=== PATIENT | female | born 1940 | race Caucasian/White ===

== ENCOUNTER 2017-05-03 13:36 | Outpatient (CLI) | payer MEDICARE ==
[2017-05-03 15:50] LABS: INR-International Normal Ratio 2.2; Prothrombin Time 25.5 SEC (12.0-14.7)
== END 2017-05-03 13:37 | disposition home or self-care (01) ==
LOC: MADLAB 13:36
PROVIDERS: ATTEND Family Medicine
DX: Z51.81 Encounter for therapeutic drug level monitoring (principal); Z79.01 Long term (current) use of anticoagulants
CPT/HCPCS: 36415; 85610

== ENCOUNTER 2017-05-31 14:27 | Outpatient (CLI) | payer MEDICARE ==
[2017-05-31 14:34] LABS: INR-International Normal Ratio 2.6
== END 2017-05-31 14:28 | disposition home or self-care (01) ==
LOC: MADLAB 14:27
PROVIDERS: ATTEND Family Medicine
DX: Z51.81 Encounter for therapeutic drug level monitoring (principal); I48.91 Unspecified atrial fibrillation; Z79.01 Long term (current) use of anticoagulants
CPT/HCPCS: 36415; 85610

== ENCOUNTER 2017-12-24 10:09 | Outpatient (CLI) | payer MEDICARE ==
[2017-12-24 10:43] LABS: INR-International Normal Ratio 1.8; Prothrombin Time 20.7 SEC (12.0-14.7)
== END 2017-12-24 10:10 | disposition home or self-care (01) ==
LOC: MADLAB 10:09
PROVIDERS: ATTEND Family Medicine
DX: I48.91 Unspecified atrial fibrillation (principal)
CPT/HCPCS: 36415; 85610

== ENCOUNTER 2018-01-14 11:17 | Outpatient (CLI) | payer MEDICARE ==
[2018-01-14 11:53] LABS: INR-International Normal Ratio 1.4; Prothrombin Time 17.6 SEC (12.0-14.7)
== END 2018-01-14 11:18 | disposition home or self-care (01) ==
LOC: MADLAB 11:17
PROVIDERS: ATTEND Family Medicine
DX: Z51.81 Encounter for therapeutic drug level monitoring (principal); I48.91 Unspecified atrial fibrillation; Z79.01 Long term (current) use of anticoagulants
CPT/HCPCS: 36415; 85610

== ENCOUNTER 2018-01-24 11:13 | Outpatient (CLI) | payer MEDICARE ==
[2018-01-24 11:43] LABS: Prothrombin Time 22.8 SEC (12.0-14.7)
== END 2018-01-24 11:14 | disposition home or self-care (01) ==
LOC: MADLAB 11:13
PROVIDERS: ATTEND Family Medicine
DX: I48.91 Unspecified atrial fibrillation (principal); Z79.01 Long term (current) use of anticoagulants
CPT/HCPCS: 36415; 85610

== ENCOUNTER 2018-02-07 10:35 | Outpatient (CLI) | payer MEDICARE ==
[2018-02-07 11:13] LABS: INR-International Normal Ratio 2.1; Prothrombin Time 23.9 SEC (12.0-14.7)
== END 2018-02-07 10:36 | disposition home or self-care (01) ==
LOC: MADLAB 10:35
PROVIDERS: ATTEND Family Medicine
DX: I48.91 Unspecified atrial fibrillation (principal)
CPT/HCPCS: 36415; 85610

== ENCOUNTER 2018-05-18 20:03 | Emergency (ER) | payer MEDICARE ==
--- NOTE | 2018-05-18 21:21 | RAD ---
CERVICAL SPINE AP LATERAL STANDARD 05/18/18 HISTORY: Neck pain after being lifted. COMPARISON: None . FINDINGS: Open mouth odontoid view is limited. Lateral radiograph only goes to the level of C5. No acute fracture or malalignment is appreciated. Moderate narrowing of the disc spaces from C3-C6 wi th uncinate process hypertrophy as well as bridging anterior osteophytes. Visualized mandible is intact. Moderate vascular calcifications both carotid bulbs. IMPRESSION: No acute abnormality. POS: [facility]
== END 2018-05-18 21:40 | disposition home or self-care (01) ==
LOC: MADERS 20:03
DX: S16.1XXA Strain of muscle, fascia and tendon at neck level, initial encounter (principal); I48.91 Unspecified atrial fibrillation; E10.9 Type 1 diabetes mellitus without complications; E78.5 Hyperlipidemia, unspecified; I10 Essential (primary) hypertension; Z79.899 Other long term (current) drug therapy; Z79.01 Long term (current) use of anticoagulants; W18.09XA Striking against other object with subsequent fall, initial encounter
CPT/HCPCS: 72040

== ENCOUNTER 2018-05-29 10:28 | Outpatient (CLI) | payer MEDICARE ==
[2018-05-29 10:56] LABS: INR-International Normal Ratio 1.2; Prothrombin Time 15.2 SEC (12.0-14.7)
== END 2018-05-29 10:29 | disposition home or self-care (01) ==
LOC: MADLAB 10:28
PROVIDERS: ATTEND Internal Medicine Cardiovascular Disease
DX: I48.0 Paroxysmal atrial fibrillation (principal)
CPT/HCPCS: 36415; 85610

== ENCOUNTER 2019-01-28 14:06 | Outpatient (CLI) | payer MEDICARE ==
[2019-01-28 14:34] LABS: INR-International Normal Ratio 1.1; Prothrombin Time 14.3 SEC (12.0-14.7)
== END 2019-01-28 14:07 | disposition home or self-care (01) ==
LOC: MADLAB 14:06
PROVIDERS: ATTEND Internal Medicine Cardiovascular Disease
DX: I48.0 Paroxysmal atrial fibrillation (principal)
CPT/HCPCS: 36415; 85610

== ENCOUNTER 2019-02-13 08:42 | Outpatient (CLI) | payer MEDICARE ==
[2019-02-13 09:26] LABS: INR-International Normal Ratio 1.8; Prothrombin Time 20.8 SEC (12.0-14.7)
== END 2019-02-13 08:43 | disposition home or self-care (01) ==
LOC: MADLAB 08:42
PROVIDERS: ATTEND Family Medicine
DX: Z51.81 Encounter for therapeutic drug level monitoring (principal); I48.91 Unspecified atrial fibrillation; Z79.01 Long term (current) use of anticoagulants
CPT/HCPCS: 36415; 85610

== ENCOUNTER 2019-03-24 09:06 | Outpatient (CLI) | payer MEDICARE ==
[2019-03-24 09:38] LABS: INR-International Normal Ratio 1.9; Prothrombin Time 21.8 SEC (12.0-14.7)
== END 2019-03-24 09:07 | disposition home or self-care (01) ==
LOC: MADLAB 09:06
PROVIDERS: ATTEND Family Medicine
DX: I48.91 Unspecified atrial fibrillation (principal); Z79.01 Long term (current) use of anticoagulants
CPT/HCPCS: 36415; 85610

== ENCOUNTER 2019-04-14 14:13 | Outpatient (CLI) | payer MEDICARE ==
[2019-04-14 15:01] LABS: INR-International Normal Ratio 1.3; Prothrombin Time 16.3 SEC (12.0-14.7)
== END 2019-04-14 14:14 | disposition home or self-care (01) ==
LOC: MADLAB 14:13
PROVIDERS: ATTEND Family Medicine
DX: Z51.81 Encounter for therapeutic drug level monitoring (principal); I48.91 Unspecified atrial fibrillation; Z79.01 Long term (current) use of anticoagulants
CPT/HCPCS: 36415; 85610

== ENCOUNTER 2019-04-22 14:54 | Outpatient (CLI) | payer MEDICARE ==
[2019-04-22 15:19] LABS: INR-International Normal Ratio 1.8; Prothrombin Time 20.9 SEC (12.0-14.7)
== END 2019-04-22 14:55 | disposition home or self-care (01) ==
LOC: MADLABBHPM 14:54
PROVIDERS: ATTEND Family Medicine
DX: Z51.81 Encounter for therapeutic drug level monitoring (principal); I48.91 Unspecified atrial fibrillation; Z79.01 Long term (current) use of anticoagulants
CPT/HCPCS: 36415; 85610

== ENCOUNTER 2019-05-06 09:27 | Outpatient (CLI) | payer MEDICARE ==
[2019-05-06 09:49] LABS: INR-International Normal Ratio 1.3; Prothrombin Time 16.1 SEC (12.0-14.7)
== END 2019-05-06 09:28 | disposition home or self-care (01) ==
LOC: MADLAB 09:27
PROVIDERS: ATTEND Family Medicine
DX: Z51.81 Encounter for therapeutic drug level monitoring (principal); I48.91 Unspecified atrial fibrillation; Z79.01 Long term (current) use of anticoagulants
CPT/HCPCS: 36415; 85610

== ENCOUNTER 2019-05-13 12:32 | Outpatient (CLI) | payer MEDICARE ==
[2019-05-13 12:39] LABS: Prothrombin Time 22.4 SEC (12.0-14.7)
== END 2019-05-13 12:33 | disposition home or self-care (01) ==
LOC: MADLAB 12:32
PROVIDERS: ATTEND Family Medicine
DX: Z51.81 Encounter for therapeutic drug level monitoring (principal); I48.91 Unspecified atrial fibrillation; Z79.01 Long term (current) use of anticoagulants
CPT/HCPCS: 36415; 85610

== ENCOUNTER 2019-05-29 10:01 | Outpatient (CLI) | payer MEDICARE ==
[2019-05-29 10:22] LABS: INR-International Normal Ratio 2.2; Prothrombin Time 24.7 SEC (12.0-14.7)
== END 2019-05-29 10:02 | disposition home or self-care (01) ==
LOC: MADLAB 10:01
PROVIDERS: ATTEND Family Medicine
DX: Z51.81 Encounter for therapeutic drug level monitoring (principal); I48.91 Unspecified atrial fibrillation; Z79.01 Long term (current) use of anticoagulants
CPT/HCPCS: 36415; 85610

== ENCOUNTER 2019-06-23 14:22 | Outpatient (CLI) | payer MEDICARE ==
[2019-06-23 14:51] LABS: INR-International Normal Ratio 1.6
== END 2019-06-23 14:23 | disposition home or self-care (01) ==
LOC: MADLAB 14:22
PROVIDERS: ATTEND Family Medicine
DX: Z51.81 Encounter for therapeutic drug level monitoring (principal); I48.91 Unspecified atrial fibrillation; Z79.01 Long term (current) use of anticoagulants
CPT/HCPCS: 36415; 85610

== ENCOUNTER 2019-07-02 11:13 | Outpatient (CLI) | payer MEDICARE ==
[2019-07-02 13:51] LABS: INR-International Normal Ratio 1.4; Prothrombin Time 17.1 SEC (12.0-14.7)
== END 2019-07-02 11:14 | disposition home or self-care (01) ==
LOC: MADLAB 11:13
PROVIDERS: ATTEND Family Medicine
DX: Z51.81 Encounter for therapeutic drug level monitoring (principal); I48.91 Unspecified atrial fibrillation; Z79.01 Long term (current) use of anticoagulants
CPT/HCPCS: 36415; 85610

== ENCOUNTER 2019-08-14 14:20 | Outpatient (CLI) | payer MEDICARE ==
[2019-08-14 14:46] LABS: INR-International Normal Ratio 1.4; Prothrombin Time 17.2 sec (12.0-14.7)
== END 2019-08-14 14:21 | disposition home or self-care (01) ==
LOC: MADLAB 14:20
PROVIDERS: ATTEND Family Medicine
DX: Z51.81 Encounter for therapeutic drug level monitoring (principal); Z79.01 Long term (current) use of anticoagulants
CPT/HCPCS: 36415; 85610

== ENCOUNTER 2019-08-26 17:30 | Inpatient (IN) | payer MEDICARE, OTHER ==
[2019-08-26] MEDS: Simvastatin 20 MG TAB PO SCH (20:33)
[2019-08-26] MEDS: Gabapentin 100 MG CAP PO SCH (20:33)
[2019-08-26] MEDS: Furosemide 40 MG TAB PO SCH (20:33)
[2019-08-26] MEDS: Metoprolol Tartrate 25 MG TAB PO SCH (23:46)
[2019-08-27] MEDS: Metoprolol Tartrate 25 MG TAB PO SCH ×4 (05:35→23:53)
[2019-08-27 08:19] LABS: #Basophils 0.1 thou/uL (0.0-0.2); #Eosinphils 0.6 thou/uL (0.0-0.7); #Lymphocytes 0.5 thou/uL (1.20-3.40); #Monocytes 0.7 thou/uL (0.11-0.59); %Basophils 0.8 % (0.0-1.0); %Eosinophils 5.7 % (0.0-10.0); %Lymphocytes 4.7 % (21.0-51.0); %Monocytes 6.3 % (0.0-10.0); %Neutrophils 82.5 % (42.0-75.0); Mean Corpuscular HGB CONC 31.6 g/dL (32.0-36.0); Mean Corpuscular Hemoglobin 30.7 pg (27.0-31.0); Mean Corpuscular Volume 97.1 fL (78.0-98.0); Mean Platelet Volume 8.6 fL (7.4-10.4); Platelet Count 215 thou/uL (130-400); RBC Distribution Width 14.3 % (11.5-14.5); Red Blood Cell (RBC) Count 3.24 mill/uL (4.20-5.40); White Blood Cell (WBC) Count 10.9 thou/uL (4.8-10.8)
[2019-08-27 08:28] LABS: INR-International Normal Ratio 1.2; Prothrombin Time 14.9 sec (12.0-14.7)
[2019-08-27 08:38] LABS: ALT (SGPT) 37 U/L (8-55); AST (SGOT) 17 U/L (5-34); Albumin 3.3 g/dL (3.4-4.8); Alkaline Phosphatase 79 U/L (40-110); Anion Gap 15 mmol/L (10-20); BUN (Urea Nitrogen) 84 mg/dL (9.8-20.1); Bilirubin, Total 0.8 mg/dL (0.2-1.2); Calc. Creatinine Clearance 82 mL/min (70-130); Calcium 9.9 mg/dL (7.8-10.44); Carbon Dioxide 24 mmol/L (23-31); Chloride 106 mmol/L (98-107); Estimated GFR-MDRD 42; Globulin 2.4 g/dL (2.4-3.5); Glucose 124 mg/dL (83-110); Potassium 3.8 mmol/L (3.5-5.1); Protein, Total 5.7 g/dL (6.0-8.3); Sodium 141 mmol/L (136-145)
[2019-08-27] MEDS: Allopurinol 100 MG TAB PO SCH (09:05)
[2019-08-27] MEDS: Aspirin 81 mg Enteric Coated Tablet PO SCH (09:05)
[2019-08-27] MEDS: Gabapentin 100 MG CAP PO SCH ×3 (09:05→20:09)
[2019-08-27] MEDS: Furosemide 40 MG TAB PO SCH ×2 (09:05→20:09)
[2019-08-27] MEDS: Nystatin Powder 15 GM BOT TOP PRN (11:06)
[2019-08-27] MEDS: HYDROcodone/Acetaminophen 5/325 mg Tablet PO PRN (11:42)
[2019-08-27] MEDS ORDERED: Ondansetron ODT 4 MG TAB PO PRN (14:58)
[2019-08-27] MEDS: Warfarin Sodium 5 MG TAB PO SCH (17:17)
[2019-08-27] MEDS: Simvastatin 20 MG TAB PO SCH (20:09)
[2019-08-27] MEDS: HYDROcodone/Acetaminophen 10/325 mg Tablet PO PRN (20:11)
[2019-08-27] MEDS ORDERED: Famotidine 20 MG TAB PO SCH (21:00)
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
[2019-08-28] MEDS: Metoprolol Tartrate 25 MG TAB PO SCH ×4 (05:52→23:25)
[2019-08-28] MEDS: Furosemide 40 MG TAB PO SCH ×2 (08:28→21:11)
[2019-08-28] MEDS: Allopurinol 100 MG TAB PO SCH (08:28)
[2019-08-28] MEDS: Aspirin 81 mg Enteric Coated Tablet PO SCH (08:28)
[2019-08-28] MEDS: Gabapentin 100 MG CAP PO SCH ×3 (08:28→21:11)
[2019-08-28] MEDS: Nystatin Powder 15 GM BOT TOP PRN (08:28)
[2019-08-28 08:30] LABS: INR-International Normal Ratio 1.2; Prothrombin Time 15.4 sec (12.0-14.7)
[2019-08-28] MEDS: HYDROcodone/Acetaminophen 10/325 mg Tablet PO PRN ×4 (09:27→23:24)
[2019-08-28] MEDS: Warfarin Sodium 5 MG TAB PO SCH (16:55)
[2019-08-28] MEDS: Simvastatin 20 MG TAB PO SCH (21:11)
[2019-08-29] MEDS: HYDROcodone/Acetaminophen 5/325 mg Tablet PO PRN ×4 (03:58→15:56)
[2019-08-29] MEDS: Metoprolol Tartrate 25 MG TAB PO SCH ×4 (05:14→23:00)
[2019-08-29 05:26] LABS: #Basophils 0.1 thou/uL (0.0-0.2); #Eosinphils 0.7 thou/uL (0.0-0.7); #Lymphocytes 0.7 thou/uL (1.20-3.40); #Monocytes 0.6 thou/uL (0.11-0.59); #Neutrophils 6.6 thou/uL (1.40-6.50); %Basophils 1.1 % (0.0-1.0); %Lymphocytes 7.7 % (21.0-51.0); %Monocytes 6.7 % (0.0-10.0); %Neutrophils 76.5 % (42.0-75.0); Hemoglobin 10.2 g/dL (12.0-16.0); Mean Corpuscular HGB CONC 31.4 g/dL (32.0-36.0); Mean Corpuscular Hemoglobin 30.9 pg (27.0-31.0); Mean Corpuscular Volume 98.3 fL (78.0-98.0); Mean Platelet Volume 8.2 fL (7.4-10.4); Platelet Count 235 thou/uL (130-400); RBC Distribution Width 14.9 % (11.5-14.5); Red Blood Cell (RBC) Count 3.31 mill/uL (4.20-5.40); White Blood Cell (WBC) Count 8.7 thou/uL (4.8-10.8)
[2019-08-29 05:27] LABS: INR-International Normal Ratio 1.3
[2019-08-29 05:35] LABS: Anion Gap 14 mmol/L (10-20); BUN (Urea Nitrogen) 72 mg/dL (9.8-20.1); Calc. Creatinine Clearance 84 mL/min (70-130); Calcium 9.9 mg/dL (7.8-10.44); Carbon Dioxide 28 mmol/L (23-31); Chloride 106 mmol/L (98-107); Estimated GFR-MDRD 44; Glucose 116 mg/dL (83-110); Potassium 3.8 mmol/L (3.5-5.1); Sodium 144 mmol/L (136-145)
[2019-08-29] MEDS: Aspirin 81 mg Enteric Coated Tablet PO SCH (08:08)
[2019-08-29] MEDS: Allopurinol 100 MG TAB PO SCH (08:08)
[2019-08-29] MEDS: Gabapentin 100 MG CAP PO SCH ×3 (08:08→20:31)
[2019-08-29] MEDS: Furosemide 40 MG TAB PO SCH ×2 (08:08→20:31)
[2019-08-29] MEDS ORDERED: Warfarin Sodium 2.5 MG TAB PO SCH (17:00)
[2019-08-29] MEDS ORDERED: Warfarin Sodium 5 MG TAB PO SCH (17:00)
[2019-08-29] MEDS: Simvastatin 20 MG TAB PO SCH (20:31)
[2019-08-29] MEDS: HYDROcodone/Acetaminophen 10/325 mg Tablet PO PRN (22:07)
[2019-08-30] MEDS: Metoprolol Tartrate 25 MG TAB PO SCH ×4 (05:15→23:47)
[2019-08-30 05:42] LABS: INR-International Normal Ratio 1.4
[2019-08-30] MEDS: Allopurinol 100 MG TAB PO SCH (08:20)
[2019-08-30] MEDS: Gabapentin 100 MG CAP PO SCH ×3 (08:20→21:06)
[2019-08-30] MEDS: Furosemide 40 MG TAB PO SCH ×2 (08:20→21:06)
[2019-08-30] MEDS: Aspirin 81 mg Enteric Coated Tablet PO SCH (08:20)
[2019-08-30] MEDS: HYDROcodone/Acetaminophen 5/325 mg Tablet PO PRN (12:50)
[2019-08-30] MEDS ORDERED: Warfarin Sodium 5 MG TAB PO SCH ×2 (16:30→17:00)
[2019-08-30] MEDS: HYDROcodone/Acetaminophen 10/325 mg Tablet PO PRN (21:06)
[2019-08-30] MEDS: Simvastatin 20 MG TAB PO SCH (21:06)
[2019-08-31] MEDS: Metoprolol Tartrate 25 MG TAB PO SCH ×4 (05:44→23:09)
[2019-08-31 06:15] LABS: INR-International Normal Ratio 1.6; Prothrombin Time 18.9 sec (12.0-14.7)
[2019-08-31] MEDS: Aspirin 81 mg Enteric Coated Tablet PO SCH (08:58)
[2019-08-31] MEDS: Furosemide 40 MG TAB PO SCH ×2 (08:58→14:33)
[2019-08-31] MEDS: Allopurinol 100 MG TAB PO SCH (08:58)
[2019-08-31] MEDS: Gabapentin 100 MG CAP PO SCH ×3 (08:59→21:19)
[2019-08-31] MEDS: Warfarin Sodium 5 MG TAB PO SCH (17:38)
[2019-08-31] MEDS: HYDROcodone/Acetaminophen 5/325 mg Tablet PO PRN (17:38)
[2019-08-31] MEDS: HYDROcodone/Acetaminophen 10/325 mg Tablet PO PRN (21:18)
[2019-08-31] MEDS: Simvastatin 20 MG TAB PO SCH (21:19)
[2019-08-31] MEDS: Metolazone 5 MG TAB PO PRN (21:19)
--- NOTE | 2019-08-31 22:04 | RAD ---
CHEST 1 VIEW: DATE: 08/31/2019 COMPARISON: Radiograph dated 05/30/2018. FINDINGS: Heart size is enlarged. Moderate effusions. Pulmonary arteries are dilated. Moderate edema. Confluent opacity right upper lobe. IMPRESSION: Decompensated congestive heart failure. POS: HOME
[2019-08-31] MEDS ORDERED: Potassium Chloride 20 MEQ TAB PO SCH (22:30)
[2019-08-31] MEDS ORDERED: Furosemide 20 MG TAB PO SCH (22:30)
[2019-09-01 03:37] LABS: Bilirubin Negative (Negative); Blood, Urine Trace (Negative); Clarity Clear (Clear); Glucose, Urine (Dipstick) Negative (Negative); Leukocyte Large (Negative); Nitrite Positive (Negative); Protein, Urine (Dipstick) Negative (Neg-Trace); Urobilinogen 0.2 mg/dL (Less than 2)
[2019-09-01 03:47] LABS: RBC/HPF 0-3 HPF (0-3)
[2019-09-01 03:48] LABS: Bacteria/HPF 3+ HPF (None Seen); Squamous Epithelial 0-3 HPF (0-3); WBC/HPF Greater than 50 HPF (0-3)
[2019-09-01 03:50] LABS: Urine Culture Reflex Yes Yes
[2019-09-01 05:45] LABS: INR-International Normal Ratio 1.9; Prothrombin Time 22.1 sec (12.0-14.7)
[2019-09-01 05:54] LABS: Anion Gap 15 mmol/L (10-20); BUN (Urea Nitrogen) 44 mg/dL (9.8-20.1); Calc. Creatinine Clearance 101 mL/min (70-130); Calcium 9.6 mg/dL (7.8-10.44); Carbon Dioxide 32 mmol/L (23-31); Chloride 102 mmol/L (98-107); Estimated GFR-MDRD 56; Glucose 106 mg/dL (83-110); Potassium 3.6 mmol/L (3.5-5.1); Sodium 145 mmol/L (136-145)
[2019-09-01] MEDS: Furosemide 40 MG TAB PO SCH (06:02)
[2019-09-01] MEDS: Metoprolol Tartrate 25 MG TAB PO SCH ×3 (06:02→17:15)
[2019-09-01] MEDS ORDERED: Furosemide 20 MG TAB PO SCH ×4 (07:30→14:00)
[2019-09-01] MEDS ORDERED: Furosemide 40 MG TAB PO SCH ×2 (07:30→14:00)
[2019-09-01] MEDS ORDERED: Potassium Chloride 20 MEQ TAB PO SCH (08:00)
[2019-09-01] MEDS: Gabapentin 100 MG CAP PO SCH ×3 (08:17→21:21)
[2019-09-01] MEDS: Aspirin 81 mg Enteric Coated Tablet PO SCH (08:17)
[2019-09-01] MEDS: Allopurinol 100 MG TAB PO SCH (08:17)
[2019-09-01] MEDS: HYDROcodone/Acetaminophen 10/325 mg Tablet PO PRN ×2 (08:25→17:42)
[2019-09-01] MEDS: Potassium Chloride 20 MEQ TAB PO SCH (16:30)
[2019-09-01] MEDS: Warfarin Sodium 5 MG TAB PO SCH (16:31)
[2019-09-01] MEDS: Simvastatin 20 MG TAB PO SCH (21:21)
[2019-09-02] MEDS: HYDROcodone/Acetaminophen 10/325 mg Tablet PO PRN ×5 (00:09→21:02)
[2019-09-02] MEDS: Metoprolol Tartrate 25 MG TAB PO SCH ×4 (00:10→17:16)
[2019-09-02 05:56] LABS: Anion Gap 14 mmol/L (10-20); BUN (Urea Nitrogen) 45 mg/dL (9.8-20.1); Calc. Creatinine Clearance 86 mL/min (70-130); Calcium 9.4 mg/dL (7.8-10.44); Carbon Dioxide 36 mmol/L (23-31); Chloride 100 mmol/L (98-107); Estimated GFR-MDRD 49; Glucose 109 mg/dL (83-110); Potassium 3.8 mmol/L (3.5-5.1); Sodium 146 mmol/L (136-145)
[2019-09-02 06:21] LABS: INR-International Normal Ratio 2.2
[2019-09-02] MEDS ORDERED: Furosemide 80 MG TAB PO SCH (07:30)
[2019-09-02] MEDS: Potassium Chloride 20 MEQ TAB PO SCH ×2 (08:15→17:17)
[2019-09-02] MEDS: Gabapentin 100 MG CAP PO SCH ×3 (08:15→21:02)
[2019-09-02] MEDS: Allopurinol 100 MG TAB PO SCH (08:15)
[2019-09-02] MEDS: Aspirin 81 mg Enteric Coated Tablet PO SCH (08:15)
[2019-09-02] MEDS ORDERED: Sodium Chloride Irrig Solution 250 ML BOT ONE (10:13)
[2019-09-02] MEDS: Furosemide 80 MG TAB PO SCH (15:02)
[2019-09-02] MEDS: Warfarin Sodium 5 MG TAB PO SCH (17:17)
[2019-09-02] MEDS: Simvastatin 20 MG TAB PO SCH (21:02)
[2019-09-03] MEDS: Metoprolol Tartrate 25 MG TAB PO SCH ×5 (00:34→23:54)
[2019-09-03 05:58] LABS: INR-International Normal Ratio 2.4; Prothrombin Time 25.7 sec (12.0-14.7)
[2019-09-03] MEDS: Aspirin 81 mg Enteric Coated Tablet PO SCH (08:13)
[2019-09-03] MEDS: HYDROcodone/Acetaminophen 10/325 mg Tablet PO PRN ×2 (08:13→12:09)
[2019-09-03] MEDS: Potassium Chloride 20 MEQ TAB PO SCH ×2 (08:13→16:55)
[2019-09-03] MEDS: Furosemide 80 MG TAB PO SCH ×2 (08:13→13:52)
[2019-09-03] MEDS: Gabapentin 100 MG CAP PO SCH ×3 (08:14→20:19)
[2019-09-03] MEDS: Allopurinol 100 MG TAB PO SCH (08:14)
[2019-09-03] MEDS: Warfarin Sodium 5 MG TAB PO SCH (16:56)
[2019-09-03] MEDS: HYDROcodone/Acetaminophen 5/325 mg Tablet PO PRN ×2 (16:56→21:09)
[2019-09-03] MEDS: Simvastatin 20 MG TAB PO SCH (20:19)
[2019-09-04] MEDS: Metoprolol Tartrate 25 MG TAB PO SCH ×4 (05:09→23:27)
[2019-09-04] MEDS: HYDROcodone/Acetaminophen 5/325 mg Tablet PO PRN ×2 (05:10→10:20)
[2019-09-04 05:59] LABS: INR-International Normal Ratio 2.7; Prothrombin Time 28.7 sec (12.0-14.7)
[2019-09-04] MEDS: Potassium Chloride 20 MEQ TAB PO SCH ×2 (08:05→16:40)
[2019-09-04] MEDS: Aspirin 81 mg Enteric Coated Tablet PO SCH (08:05)
[2019-09-04] MEDS: Gabapentin 100 MG CAP PO SCH ×3 (08:05→20:10)
[2019-09-04] MEDS: Furosemide 80 MG TAB PO SCH ×2 (08:05→14:25)
[2019-09-04] MEDS: Allopurinol 100 MG TAB PO SCH (08:05)
[2019-09-04 09:34] LABS: #Basophils 0.1 thou/uL (0.0-0.2); #Eosinphils 0.4 thou/uL (0.0-0.7); #Lymphocytes 0.7 thou/uL (1.20-3.40); #Monocytes 0.4 thou/uL (0.11-0.59); #Neutrophils 6.1 thou/uL (1.40-6.50); %Basophils 0.9 % (0.0-1.0); %Eosinophils 5.2 % (0.0-10.0); %Lymphocytes 9.1 % (21.0-51.0); %Monocytes 5.5 % (0.0-10.0); %Neutrophils 79.3 % (42.0-75.0); Hemoglobin 10.7 g/dL (12.0-16.0); Mean Corpuscular HGB CONC 29.7 g/dL (32.0-36.0); Mean Corpuscular Hemoglobin 29.7 pg (27.0-31.0); Mean Platelet Volume 8.7 fL (7.4-10.4); Platelet Count 235 thou/uL (130-400); RBC Distribution Width 14.8 % (11.5-14.5); White Blood Cell (WBC) Count 7.6 thou/uL (4.8-10.8)
[2019-09-04 09:47] LABS: Anion Gap 16 mmol/L (10-20); BUN (Urea Nitrogen) 48 mg/dL (9.8-20.1); Calc. Creatinine Clearance 69 mL/min (70-130); Calcium 9.8 mg/dL (7.8-10.44); Carbon Dioxide 36 mmol/L (23-31); Chloride 95 mmol/L (98-107); Estimated GFR-MDRD 37; Glucose 172 mg/dL (83-110); Sodium 143 mmol/L (136-145)
[2019-09-04 16:18] LABS: Bilirubin Negative (Negative); Blood, Urine Trace (Negative); Glucose, Urine (Dipstick) Negative (Negative); Leukocyte Small (Negative); Nitrite Positive (Negative); Protein, Urine (Dipstick) Negative (Neg-Trace); Urobilinogen 0.2 mg/dL (Less than 2)
[2019-09-04 16:29] LABS: Clarity Hazy (Clear)
[2019-09-04 16:31] LABS: Bacteria/HPF 1+ HPF (None Seen); RBC/HPF 0-3 HPF (0-3); WBC/HPF 21-50 HPF (0-3)
[2019-09-04] MEDS: Warfarin Sodium 5 MG TAB PO SCH (16:40)
[2019-09-04] MEDS: HYDROcodone/Acetaminophen 10/325 mg Tablet PO PRN ×2 (19:39→23:25)
[2019-09-04] MEDS: Simvastatin 20 MG TAB PO SCH (20:10)
[2019-09-05] MEDS: HYDROcodone/Acetaminophen 10/325 mg Tablet PO PRN ×3 (06:21→20:10)
[2019-09-05] MEDS: Metoprolol Tartrate 25 MG TAB PO SCH ×4 (06:23→23:29)
[2019-09-05 07:40] LABS: Prothrombin Time 30.7 sec (12.0-14.7)
[2019-09-05] MEDS: Potassium Chloride 20 MEQ TAB PO SCH ×2 (07:40→17:09)
[2019-09-05] MEDS: Furosemide 80 MG TAB PO SCH ×2 (07:41→14:55)
[2019-09-05] MEDS: Allopurinol 100 MG TAB PO SCH (07:41)
[2019-09-05] MEDS: Aspirin 81 mg Enteric Coated Tablet PO SCH (07:41)
[2019-09-05] MEDS: Gabapentin 100 MG CAP PO SCH ×3 (07:41→20:10)
[2019-09-05] MEDS: Warfarin Sodium 2.5 MG TAB PO SCH ×2 (17:11→17:16)
[2019-09-05] MEDS: Simvastatin 20 MG TAB PO SCH (20:10)
[2019-09-06] MEDS: HYDROcodone/Acetaminophen 10/325 mg Tablet PO PRN ×5 (01:29→22:06)
[2019-09-06] MEDS: Metoprolol Tartrate 25 MG TAB PO SCH ×4 (05:13→23:10)
[2019-09-06 07:14] LABS: INR-International Normal Ratio 3.1
[2019-09-06] MEDS: Potassium Chloride 20 MEQ TAB PO SCH ×2 (08:23→17:03)
[2019-09-06] MEDS: Gabapentin 100 MG CAP PO SCH ×3 (08:24→21:04)
[2019-09-06] MEDS: Furosemide 80 MG TAB PO SCH (08:24)
[2019-09-06] MEDS: Aspirin 81 mg Enteric Coated Tablet PO SCH (08:24)
[2019-09-06] MEDS: Allopurinol 100 MG TAB PO SCH (08:24)
[2019-09-06] MEDS: Furosemide 40 MG TAB PO SCH (14:02)
[2019-09-06] MEDS ORDERED: Warfarin Sodium 5 MG TAB PO SCH (17:00)
[2019-09-06] MEDS: Simvastatin 20 MG TAB PO SCH (21:04)
[2019-09-07] MEDS: HYDROcodone/Acetaminophen 10/325 mg Tablet PO PRN ×4 (03:02→21:16)
[2019-09-07] MEDS: Metoprolol Tartrate 25 MG TAB PO SCH ×4 (05:40→23:38)
[2019-09-07 05:55] LABS: INR-International Normal Ratio 3.6; Prothrombin Time 35.3 sec (12.0-14.7)
[2019-09-07] MEDS: Aspirin 81 mg Enteric Coated Tablet PO SCH (08:25)
[2019-09-07] MEDS: Potassium Chloride 20 MEQ TAB PO SCH ×2 (08:25→17:20)
[2019-09-07] MEDS: Allopurinol 100 MG TAB PO SCH (08:25)
[2019-09-07] MEDS: Furosemide 80 MG TAB PO SCH (08:25)
[2019-09-07] MEDS: Acetaminophen 325 MG TAB PO PRN (08:25)
[2019-09-07] MEDS: Gabapentin 100 MG CAP PO SCH ×3 (08:25→20:26)
[2019-09-07] MEDS ORDERED: Warfarin Sodium 5 MG TAB PO SCH (10:00)
[2019-09-07] MEDS ORDERED: Warfarin Sodium 2.5 MG TAB PO SCH (10:00)
[2019-09-07] MEDS: Furosemide 40 MG TAB PO SCH (14:34)
[2019-09-07] MEDS: Simvastatin 20 MG TAB PO SCH (20:27)
[2019-09-08] MEDS: HYDROcodone/Acetaminophen 10/325 mg Tablet PO PRN ×4 (04:55→21:41)
[2019-09-08] MEDS: Metoprolol Tartrate 25 MG TAB PO SCH ×3 (05:33→17:10)
[2019-09-08 05:41] LABS: INR-International Normal Ratio 3.4; Prothrombin Time 34.3 sec (12.0-14.7)
[2019-09-08] MEDS: Furosemide 80 MG TAB PO SCH (08:20)
[2019-09-08] MEDS: Allopurinol 100 MG TAB PO SCH (08:20)
[2019-09-08] MEDS: Aspirin 81 mg Enteric Coated Tablet PO SCH (08:20)
[2019-09-08] MEDS: Gabapentin 100 MG CAP PO SCH ×3 (08:20→20:26)
[2019-09-08] MEDS: Potassium Chloride 20 MEQ TAB PO SCH ×2 (08:20→17:09)
[2019-09-08] MEDS ORDERED: HYDROcodone/Acetaminophen 10/325 mg Tablet PO SCH (10:40)
[2019-09-08] MEDS: Furosemide 40 MG TAB PO SCH (15:55)
[2019-09-08] MEDS: Simvastatin 20 MG TAB PO SCH (20:26)
[2019-09-08] MEDS: A&D OINTMENT FS SCH (21:00)
[2019-09-08] MEDS: BOUDREAUX'S BUTT PASTE FS SCH (21:00)
[2019-09-09] MEDS: Metoprolol Tartrate 25 MG TAB PO SCH ×5 (00:36→23:38)
[2019-09-09] MEDS: HYDROcodone/Acetaminophen 10/325 mg Tablet PO PRN ×3 (04:21→20:23)
[2019-09-09] MEDS: Aspirin 81 mg Enteric Coated Tablet PO SCH (08:31)
[2019-09-09] MEDS: Allopurinol 100 MG TAB PO SCH (08:31)
[2019-09-09] MEDS: Furosemide 80 MG TAB PO SCH (08:31)
[2019-09-09] MEDS: Gabapentin 100 MG CAP PO SCH ×3 (08:31→20:23)
[2019-09-09] MEDS: Potassium Chloride 20 MEQ TAB PO SCH ×2 (08:31→15:15)
[2019-09-09] MEDS: A&D OINTMENT FS SCH ×2 (08:41→20:30)
[2019-09-09] MEDS: BOUDREAUX'S BUTT PASTE FS SCH ×2 (08:41→23:39)
[2019-09-09 10:01] LABS: #Basophils 0.1 thou/uL (0.0-0.2); #Eosinphils 0.3 thou/uL (0.0-0.7); #Lymphocytes 0.7 thou/uL (1.20-3.40); #Monocytes 0.5 thou/uL (0.11-0.59); #Neutrophils 4.2 thou/uL (1.40-6.50); %Basophils 1.8 % (0.0-1.0); %Eosinophils 5.4 % (0.0-10.0); %Lymphocytes 12.3 % (21.0-51.0); %Monocytes 8.6 % (0.0-10.0); Hemoglobin 10.3 g/dL (12.0-16.0); Mean Corpuscular HGB CONC 29.5 g/dL (32.0-36.0); Mean Corpuscular Hemoglobin 29.5 pg (27.0-31.0); Mean Corpuscular Volume 99.9 fL (78.0-98.0); Mean Platelet Volume 9.9 fL (7.4-10.4); Platelet Count 190 thou/uL (130-400); RBC Distribution Width 15.1 % (11.5-14.5); White Blood Cell (WBC) Count 5.8 thou/uL (4.8-10.8)
[2019-09-09 10:51] LABS: Anion Gap 15 mmol/L (10-20); BUN (Urea Nitrogen) 50 mg/dL (9.8-20.1); Calc. Creatinine Clearance 65 mL/min (70-130); Calcium 9.7 mg/dL (7.8-10.44); Carbon Dioxide 31 mmol/L (23-31); Chloride 100 mmol/L (98-107); Estimated GFR-MDRD 35; Glucose 146 mg/dL (83-110); Potassium 4.5 mmol/L (3.5-5.1); Sodium 141 mmol/L (136-145)
[2019-09-09] MEDS: Furosemide 40 MG TAB PO SCH (15:15)
[2019-09-09] MEDS: Simvastatin 20 MG TAB PO SCH (20:23)
[2019-09-09] MEDS: Docusate 100 MG CAP PO SCH (21:00)
[2019-09-10] MEDS: HYDROcodone/Acetaminophen 10/325 mg Tablet PO PRN ×4 (03:57→21:21)
[2019-09-10] MEDS: Metoprolol Tartrate 25 MG TAB PO SCH ×3 (05:06→17:08)
[2019-09-10 05:36] LABS: INR-International Normal Ratio 2.2; Prothrombin Time 24.3 sec (12.0-14.7)
[2019-09-10] MEDS: Docusate 100 MG CAP PO SCH ×2 (08:12→21:18)
[2019-09-10] MEDS: Furosemide 80 MG TAB PO SCH (08:12)
[2019-09-10] MEDS: Allopurinol 100 MG TAB PO SCH (08:12)
[2019-09-10] MEDS: Potassium Chloride 20 MEQ TAB PO SCH ×2 (08:12→17:00)
[2019-09-10] MEDS: Gabapentin 100 MG CAP PO SCH ×3 (08:12→21:18)
[2019-09-10] MEDS: Aspirin 81 mg Enteric Coated Tablet PO SCH (08:12)
[2019-09-10] MEDS: A&D OINTMENT FS SCH ×2 (10:21→21:19)
[2019-09-10] MEDS: BOUDREAUX'S BUTT PASTE FS SCH ×2 (10:21→21:19)
[2019-09-10] MEDS: Furosemide 40 MG TAB PO SCH (12:06)
[2019-09-10] MEDS: Simvastatin 20 MG TAB PO SCH (21:18)
[2019-09-11] MEDS: Metoprolol Tartrate 25 MG TAB PO SCH ×5 (00:14→22:57)
[2019-09-11] MEDS: HYDROcodone/Acetaminophen 10/325 mg Tablet PO PRN ×5 (02:12→22:57)
[2019-09-11 07:22] LABS: INR-International Normal Ratio 1.6; Prothrombin Time 18.9 sec (12.0-14.7)
[2019-09-11] MEDS: Potassium Chloride 20 MEQ TAB PO SCH ×2 (08:38→16:45)
[2019-09-11] MEDS: Gabapentin 100 MG CAP PO SCH ×3 (08:38→20:55)
[2019-09-11] MEDS: Allopurinol 100 MG TAB PO SCH (08:39)
[2019-09-11] MEDS: Docusate 100 MG CAP PO SCH ×2 (08:39→20:55)
[2019-09-11] MEDS: Aspirin 81 mg Enteric Coated Tablet PO SCH (08:39)
[2019-09-11] MEDS: Furosemide 80 MG TAB PO SCH (08:42)
[2019-09-11] MEDS: A&D OINTMENT FS SCH ×2 (11:30→21:00)
[2019-09-11] MEDS: BOUDREAUX'S BUTT PASTE FS SCH (11:30)
[2019-09-11] MEDS: Furosemide 40 MG TAB PO SCH (13:37)
[2019-09-11] MEDS: Warfarin Sodium 2 MG TAB PO SCH (16:46)
[2019-09-11] MEDS ORDERED: Warfarin Sodium 5 MG TAB PO SCH (17:00)
[2019-09-11] MEDS: Simvastatin 20 MG TAB PO SCH (20:55)
[2019-09-12] MEDS: HYDROcodone/Acetaminophen 10/325 mg Tablet PO PRN ×4 (04:56→22:25)
[2019-09-12] MEDS: BOUDREAUX'S BUTT PASTE FS SCH ×3 (05:00→22:19)
[2019-09-12 05:50] LABS: INR-International Normal Ratio 1.8; Prothrombin Time 20.7 sec (12.0-14.7)
[2019-09-12 05:55] LABS: Anion Gap 17 mmol/L (10-20); BUN (Urea Nitrogen) 48 mg/dL (9.8-20.1); Calc. Creatinine Clearance 67 mL/min (70-130); Calcium 9.8 mg/dL (7.8-10.44); Carbon Dioxide 29 mmol/L (23-31); Chloride 101 mmol/L (98-107); Estimated GFR-MDRD 36; Glucose 120 mg/dL (83-110); Potassium 4.4 mmol/L (3.5-5.1); Sodium 143 mmol/L (136-145)
[2019-09-12] MEDS: Metoprolol Tartrate 25 MG TAB PO SCH ×3 (06:03→17:11)
[2019-09-12] MEDS: Docusate 100 MG CAP PO SCH ×2 (09:09→22:18)
[2019-09-12] MEDS: Furosemide 80 MG TAB PO SCH (09:10)
[2019-09-12] MEDS: Gabapentin 100 MG CAP PO SCH ×3 (09:10→22:19)
[2019-09-12] MEDS: A&D OINTMENT FS SCH ×2 (09:10→22:20)
[2019-09-12] MEDS: Aspirin 81 mg Enteric Coated Tablet PO SCH (09:10)
[2019-09-12] MEDS: Allopurinol 100 MG TAB PO SCH (09:10)
[2019-09-12] MEDS: Potassium Chloride 20 MEQ TAB PO SCH ×2 (09:10→17:11)
[2019-09-12] MEDS: Furosemide 40 MG TAB PO SCH (14:40)
[2019-09-12] MEDS ORDERED: Warfarin Sodium 2.5 MG TAB PO SCH (17:00)
[2019-09-12] MEDS: Warfarin Sodium 2 MG TAB PO SCH (17:12)
[2019-09-12] MEDS: Simvastatin 20 MG TAB PO SCH (22:19)
[2019-09-13] MEDS: Acetaminophen 325 MG TAB PO PRN (00:14)
[2019-09-13] MEDS: Metoprolol Tartrate 25 MG TAB PO SCH ×5 (00:14→23:30)
[2019-09-13] MEDS: HYDROcodone/Acetaminophen 10/325 mg Tablet PO PRN ×4 (02:55→20:53)
[2019-09-13 05:57] LABS: INR-International Normal Ratio 1.9; Prothrombin Time 21.3 sec (12.0-14.7)
[2019-09-13] MEDS: Gabapentin 100 MG CAP PO SCH ×3 (09:50→20:54)
[2019-09-13] MEDS: Allopurinol 100 MG TAB PO SCH (09:50)
[2019-09-13] MEDS: Aspirin 81 mg Enteric Coated Tablet PO SCH (09:50)
[2019-09-13] MEDS: Furosemide 80 MG TAB PO SCH (09:50)
[2019-09-13] MEDS: Potassium Chloride 20 MEQ TAB PO SCH ×2 (09:50→17:05)
[2019-09-13] MEDS: A&D OINTMENT FS SCH ×2 (09:50→20:57)
[2019-09-13] MEDS: Docusate 100 MG CAP PO SCH ×2 (09:50→20:54)
[2019-09-13] MEDS: BOUDREAUX'S BUTT PASTE FS SCH ×2 (09:51→20:57)
[2019-09-13] MEDS: Furosemide 40 MG TAB PO SCH (14:18)
[2019-09-13] MEDS: Warfarin Sodium 2 MG TAB PO SCH (17:05)
[2019-09-13] MEDS: Simvastatin 20 MG TAB PO SCH (20:54)
[2019-09-14] MEDS: HYDROcodone/Acetaminophen 10/325 mg Tablet PO PRN ×4 (05:24→20:18)
[2019-09-14] MEDS: Metoprolol Tartrate 25 MG TAB PO SCH ×3 (05:24→17:12)
[2019-09-14 06:18] LABS: Prothrombin Time 22.6 sec (12.0-14.7)
[2019-09-14] MEDS: Potassium Chloride 20 MEQ TAB PO SCH ×2 (08:36→17:10)
[2019-09-14] MEDS: Allopurinol 100 MG TAB PO SCH (08:36)
[2019-09-14] MEDS: Aspirin 81 mg Enteric Coated Tablet PO SCH (08:37)
[2019-09-14] MEDS: Docusate 100 MG CAP PO SCH ×2 (08:37→20:21)
[2019-09-14] MEDS: Furosemide 80 MG TAB PO SCH (08:38)
[2019-09-14] MEDS: Gabapentin 100 MG CAP PO SCH ×3 (08:38→20:21)
[2019-09-14] MEDS: A&D OINTMENT FS SCH ×2 (08:39→20:22)
[2019-09-14] MEDS: BOUDREAUX'S BUTT PASTE FS SCH ×2 (08:40→20:22)
[2019-09-14] MEDS: Furosemide 40 MG TAB PO SCH (14:25)
[2019-09-14] MEDS: Warfarin Sodium 2 MG TAB PO SCH (17:12)
[2019-09-14] MEDS: Simvastatin 20 MG TAB PO SCH (20:21)
[2019-09-15] MEDS: Metoprolol Tartrate 25 MG TAB PO SCH ×4 (00:32→18:00)
[2019-09-15] MEDS: HYDROcodone/Acetaminophen 10/325 mg Tablet PO PRN ×5 (00:58→20:17)
[2019-09-15 07:22] LABS: INR-International Normal Ratio 1.9; Prothrombin Time 22.1 sec (12.0-14.7)
[2019-09-15] MEDS: Potassium Chloride 20 MEQ TAB PO SCH ×2 (08:11→14:40)
[2019-09-15] MEDS: Aspirin 81 mg Enteric Coated Tablet PO SCH (08:11)
[2019-09-15] MEDS: Allopurinol 100 MG TAB PO SCH (08:11)
[2019-09-15] MEDS: Furosemide 80 MG TAB PO SCH (08:11)
[2019-09-15] MEDS: Gabapentin 100 MG CAP PO SCH ×3 (08:12→20:16)
[2019-09-15] MEDS: Docusate 100 MG CAP PO SCH ×2 (08:16→20:16)
[2019-09-15] MEDS: A&D OINTMENT FS SCH (10:28)
[2019-09-15] MEDS: BOUDREAUX'S BUTT PASTE FS SCH (10:29)
[2019-09-15] MEDS: Furosemide 40 MG TAB PO SCH (14:38)
[2019-09-15] MEDS: Warfarin Sodium 2 MG TAB PO SCH (14:40)
[2019-09-15] MEDS: A&D OINTMENT TOP SCH (20:16)
[2019-09-15] MEDS: Simvastatin 20 MG TAB PO SCH (20:17)
[2019-09-15] MEDS: BOUDREAUX'S BUTT PASTE TOP SCH (20:17)
[2019-09-15] MEDS: NERVE COMPLEX PO SCH (20:50)
[2019-09-16] MEDS: HYDROcodone/Acetaminophen 10/325 mg Tablet PO PRN ×5 (00:06→20:21)
[2019-09-16] MEDS: Metoprolol Tartrate 25 MG TAB PO SCH ×4 (00:06→17:31)
[2019-09-16 05:49] LABS: INR-International Normal Ratio 2.2; Prothrombin Time 24.2 sec (12.0-14.7)
[2019-09-16] MEDS: Gabapentin 100 MG CAP PO SCH ×3 (08:58→20:20)
[2019-09-16] MEDS: Allopurinol 100 MG TAB PO SCH (08:58)
[2019-09-16] MEDS: Aspirin 81 mg Enteric Coated Tablet PO SCH (08:58)
[2019-09-16] MEDS: Potassium Chloride 20 MEQ TAB PO SCH ×2 (08:58→17:31)
[2019-09-16] MEDS: Furosemide 80 MG TAB PO SCH (08:58)
[2019-09-16] MEDS: Docusate 100 MG CAP PO SCH ×2 (08:59→20:20)
[2019-09-16] MEDS: BOUDREAUX'S BUTT PASTE TOP SCH ×2 (09:00→21:10)
[2019-09-16] MEDS: A&D OINTMENT TOP SCH ×2 (09:00→21:10)
[2019-09-16] MEDS: NITRIC OXIDE PO SCH (09:01)
[2019-09-16] MEDS: NERVE COMPLEX PO SCH ×2 (09:01→21:10)
[2019-09-16] MEDS: Furosemide 40 MG TAB PO SCH (14:50)
[2019-09-16] MEDS: Warfarin Sodium 2 MG TAB PO SCH (17:32)
[2019-09-16] MEDS: Simvastatin 20 MG TAB PO SCH (20:20)
[2019-09-17] MEDS: HYDROcodone/Acetaminophen 10/325 mg Tablet PO PRN ×5 (00:32→19:58)
[2019-09-17] MEDS: Metoprolol Tartrate 25 MG TAB PO SCH ×4 (00:32→17:13)
[2019-09-17 05:56] LABS: #Basophils 0.1 thou/uL (0.0-0.2); #Eosinphils 0.4 thou/uL (0.0-0.7); #Lymphocytes 0.8 thou/uL (1.20-3.40); #Monocytes 0.5 thou/uL (0.11-0.59); #Neutrophils 2.9 thou/uL (1.40-6.50); %Basophils 1.2 % (0.0-1.0); %Eosinophils 7.9 % (0.0-10.0); %Lymphocytes 16.4 % (21.0-51.0); %Monocytes 11.3 % (0.0-10.0); %Neutrophils 63.3 % (42.0-75.0); Hemoglobin 9.6 g/dL (12.0-16.0); Mean Corpuscular HGB CONC 29.6 g/dL (32.0-36.0); Mean Corpuscular Hemoglobin 29.7 pg (27.0-31.0); Mean Corpuscular Volume 100.5 fL (78.0-98.0); Mean Platelet Volume 9.9 fL (7.4-10.4); Platelet Count 163 thou/uL (130-400); RBC Distribution Width 16.3 % (11.5-14.5); Red Blood Cell (RBC) Count 3.23 mill/uL (4.20-5.40); White Blood Cell (WBC) Count 4.6 thou/uL (4.8-10.8)
[2019-09-17 06:07] LABS: Anion Gap 15 mmol/L (10-20); BUN (Urea Nitrogen) 39 mg/dL (9.8-20.1); Calc. Creatinine Clearance 78 mL/min (70-130); Calcium 9.2 mg/dL (7.8-10.44); Carbon Dioxide 26 mmol/L (23-31); Chloride 104 mmol/L (98-107); Estimated GFR-MDRD 43; Glucose 111 mg/dL (83-110); Potassium 4.1 mmol/L (3.5-5.1); Sodium 141 mmol/L (136-145)
[2019-09-17] MEDS: Potassium Chloride 20 MEQ TAB PO SCH ×2 (08:11→17:13)
[2019-09-17] MEDS: Aspirin 81 mg Enteric Coated Tablet PO SCH (09:11)
[2019-09-17] MEDS: Allopurinol 100 MG TAB PO SCH (09:11)
[2019-09-17] MEDS: Gabapentin 100 MG CAP PO SCH ×3 (09:11→20:00)
[2019-09-17] MEDS: Furosemide 80 MG TAB PO SCH (09:11)
[2019-09-17] MEDS: Docusate 100 MG CAP PO SCH ×2 (09:11→20:00)
[2019-09-17] MEDS: A&D OINTMENT TOP SCH ×2 (09:14→21:00)
[2019-09-17] MEDS: NERVE COMPLEX PO SCH ×2 (09:14→21:00)
[2019-09-17] MEDS: BOUDREAUX'S BUTT PASTE TOP SCH ×2 (09:14→21:00)
[2019-09-17] MEDS: NITRIC OXIDE PO SCH (09:15)
[2019-09-17 10:15] LABS: INR-International Normal Ratio 2.3; Prothrombin Time 24.8 sec (12.0-14.7)
[2019-09-17] MEDS ORDERED: Furosemide 40 MG TAB PO SCH (15:45)
[2019-09-17] MEDS: Furosemide 40 MG TAB PO SCH (15:45)
[2019-09-17] MEDS: Warfarin Sodium 2 MG TAB PO SCH (17:13)
[2019-09-17] MEDS: Simvastatin 20 MG TAB PO SCH (20:00)
[2019-09-18] MEDS: Metoprolol Tartrate 25 MG TAB PO SCH ×5 (00:05→23:33)
[2019-09-18] MEDS: HYDROcodone/Acetaminophen 10/325 mg Tablet PO PRN ×6 (00:09→21:34)
[2019-09-18 05:49] LABS: INR-International Normal Ratio 2.1; Prothrombin Time 23.7 sec (12.0-14.7)
[2019-09-18] MEDS: Potassium Chloride 20 MEQ TAB PO SCH ×2 (08:32→17:29)
[2019-09-18] MEDS: Gabapentin 100 MG CAP PO SCH ×3 (08:32→20:59)
[2019-09-18] MEDS: Aspirin 81 mg Enteric Coated Tablet PO SCH (08:32)
[2019-09-18] MEDS: Docusate 100 MG CAP PO SCH ×2 (08:32→20:59)
[2019-09-18] MEDS: Furosemide 80 MG TAB PO SCH (08:32)
[2019-09-18] MEDS: Allopurinol 100 MG TAB PO SCH (08:32)
[2019-09-18] MEDS: A&D OINTMENT TOP SCH ×2 (08:34→21:00)
[2019-09-18] MEDS: BOUDREAUX'S BUTT PASTE TOP SCH ×2 (08:35→21:00)
[2019-09-18] MEDS: NERVE COMPLEX PO SCH ×2 (08:37→21:01)
[2019-09-18] MEDS: NITRIC OXIDE PO SCH (08:37)
[2019-09-18] MEDS: Furosemide 40 MG TAB PO SCH (14:07)
[2019-09-18] MEDS: Acetaminophen 325 MG TAB PO PRN (15:26)
[2019-09-18] MEDS: Warfarin Sodium 2 MG TAB PO SCH (17:29)
[2019-09-18] MEDS: Simvastatin 20 MG TAB PO SCH (20:59)
[2019-09-19] MEDS: Metoprolol Tartrate 25 MG TAB PO SCH ×4 (05:33→23:17)
[2019-09-19 05:49] LABS: INR-International Normal Ratio 2.5; Prothrombin Time 26.6 sec (12.0-14.7)
[2019-09-19] MEDS: HYDROcodone/Acetaminophen 10/325 mg Tablet PO PRN ×3 (05:55→20:51)
[2019-09-19] MEDS: Potassium Chloride 20 MEQ TAB PO SCH ×2 (09:10→16:59)
[2019-09-19] MEDS: Aspirin 81 mg Enteric Coated Tablet PO SCH (09:10)
[2019-09-19] MEDS: Gabapentin 100 MG CAP PO SCH ×3 (09:11→20:44)
[2019-09-19] MEDS: Docusate 100 MG CAP PO SCH ×2 (09:11→20:44)
[2019-09-19] MEDS: Furosemide 80 MG TAB PO SCH (09:11)
[2019-09-19] MEDS: Allopurinol 100 MG TAB PO SCH (09:11)
[2019-09-19] MEDS: Acetaminophen 325 MG TAB PO PRN (09:11)
[2019-09-19] MEDS: BOUDREAUX'S BUTT PASTE TOP SCH ×2 (09:11→20:46)
[2019-09-19] MEDS: A&D OINTMENT TOP SCH ×2 (09:12→20:47)
[2019-09-19] MEDS: NITRIC OXIDE PO SCH (09:12)
[2019-09-19] MEDS: NERVE COMPLEX PO SCH ×2 (09:12→20:45)
[2019-09-19] MEDS ORDERED: traMADol HCl 50 MG TAB PO PRN (11:29)
[2019-09-19] MEDS: Furosemide 40 MG TAB PO SCH (14:10)
[2019-09-19] MEDS: Warfarin Sodium 2 MG TAB PO SCH (16:59)
[2019-09-19] MEDS: Simvastatin 20 MG TAB PO SCH (20:44)
[2019-09-20] MEDS: HYDROcodone/Acetaminophen 10/325 mg Tablet PO PRN ×5 (02:11→20:03)
[2019-09-20] MEDS: Metoprolol Tartrate 25 MG TAB PO SCH ×4 (05:45→23:13)
[2019-09-20 05:47] LABS: INR-International Normal Ratio 2.6; Prothrombin Time 27.9 sec (12.0-14.7)
[2019-09-20] MEDS: Potassium Chloride 20 MEQ TAB PO SCH ×2 (09:37→17:26)
[2019-09-20] MEDS: Aspirin 81 mg Enteric Coated Tablet PO SCH (09:37)
[2019-09-20] MEDS: Docusate 100 MG CAP PO SCH ×2 (09:37→20:13)
[2019-09-20] MEDS: Allopurinol 100 MG TAB PO SCH (09:37)
[2019-09-20] MEDS: Gabapentin 100 MG CAP PO SCH ×3 (09:37→20:13)
[2019-09-20] MEDS: BOUDREAUX'S BUTT PASTE TOP SCH ×2 (09:38→20:15)
[2019-09-20] MEDS: NERVE COMPLEX PO SCH ×2 (09:38→20:15)
[2019-09-20] MEDS: A&D OINTMENT TOP SCH ×2 (09:38→20:15)
[2019-09-20] MEDS: NITRIC OXIDE PO SCH (09:39)
[2019-09-20] MEDS: Furosemide 80 MG TAB PO SCH ×2 (09:52→14:04)
[2019-09-20] MEDS ORDERED: Furosemide 40 MG TAB PO SCH (14:00)
[2019-09-20] MEDS: Warfarin Sodium 2 MG TAB PO SCH (17:27)
[2019-09-20] MEDS: Simvastatin 20 MG TAB PO SCH (20:13)
[2019-09-21] MEDS: HYDROcodone/Acetaminophen 10/325 mg Tablet PO PRN ×5 (01:39→22:05)
[2019-09-21] MEDS: Metoprolol Tartrate 25 MG TAB PO SCH ×3 (05:31→17:08)
[2019-09-21 05:52] LABS: INR-International Normal Ratio 2.6; Prothrombin Time 27.3 sec (12.0-14.7)
[2019-09-21] MEDS: Potassium Chloride 20 MEQ TAB PO SCH ×2 (09:25→17:08)
[2019-09-21] MEDS: Allopurinol 100 MG TAB PO SCH (09:25)
[2019-09-21] MEDS: Gabapentin 100 MG CAP PO SCH ×4 (09:25→20:15)
[2019-09-21] MEDS: Furosemide 80 MG TAB PO SCH ×3 (09:25→17:09)
[2019-09-21] MEDS: Aspirin 81 mg Enteric Coated Tablet PO SCH (09:25)
[2019-09-21] MEDS: Docusate 100 MG CAP PO SCH ×2 (09:25→20:13)
[2019-09-21] MEDS: A&D OINTMENT TOP SCH ×2 (09:26→20:17)
[2019-09-21] MEDS: BOUDREAUX'S BUTT PASTE TOP SCH ×2 (09:26→20:17)
[2019-09-21] MEDS: NERVE COMPLEX PO SCH ×2 (09:26→20:17)
[2019-09-21] MEDS: NITRIC OXIDE PO SCH (09:26)
[2019-09-21] MEDS: Warfarin Sodium 2 MG TAB PO SCH (17:08)
[2019-09-21] MEDS: Simvastatin 20 MG TAB PO SCH (20:13)
[2019-09-22] MEDS: Metoprolol Tartrate 25 MG TAB PO SCH ×4 (00:56→16:49)
[2019-09-22] MEDS: HYDROcodone/Acetaminophen 10/325 mg Tablet PO PRN ×4 (01:36→22:12)
[2019-09-22 06:13] LABS: INR-International Normal Ratio 2.4; Prothrombin Time 25.8 sec (12.0-14.7)
[2019-09-22] MEDS: Aspirin 81 mg Enteric Coated Tablet PO SCH (08:41)
[2019-09-22] MEDS: Docusate 100 MG CAP PO SCH ×2 (08:41→20:46)
[2019-09-22] MEDS: Gabapentin 100 MG CAP PO SCH ×3 (08:42→20:46)
[2019-09-22] MEDS: Potassium Chloride 20 MEQ TAB PO SCH ×2 (08:42→16:49)
[2019-09-22] MEDS: Allopurinol 100 MG TAB PO SCH (08:42)
[2019-09-22] MEDS: A&D OINTMENT TOP SCH ×2 (08:45→20:47)
[2019-09-22] MEDS: Furosemide 80 MG TAB PO SCH ×2 (08:45→13:38)
[2019-09-22] MEDS: BOUDREAUX'S BUTT PASTE TOP SCH ×2 (08:45→20:46)
[2019-09-22] MEDS: NERVE COMPLEX PO SCH ×2 (08:46→20:48)
[2019-09-22] MEDS: NITRIC OXIDE PO SCH (08:46)
[2019-09-22] MEDS: Warfarin Sodium 2 MG TAB PO SCH (16:50)
[2019-09-22] MEDS: Simvastatin 20 MG TAB PO SCH (20:46)
[2019-09-23] MEDS: Metoprolol Tartrate 25 MG TAB PO SCH ×4 (00:12→16:55)
[2019-09-23] MEDS: HYDROcodone/Acetaminophen 10/325 mg Tablet PO PRN ×5 (03:30→20:47)
[2019-09-23 05:43] LABS: INR-International Normal Ratio 2.5; Prothrombin Time 26.9 sec (12.0-14.7)
[2019-09-23] MEDS: Potassium Chloride 20 MEQ TAB PO SCH ×2 (07:44→16:55)
[2019-09-23] MEDS: Aspirin 81 mg Enteric Coated Tablet PO SCH (07:44)
[2019-09-23] MEDS: Allopurinol 100 MG TAB PO SCH (07:44)
[2019-09-23] MEDS: Furosemide 80 MG TAB PO SCH ×2 (07:45→14:43)
[2019-09-23] MEDS: Docusate 100 MG CAP PO SCH ×2 (07:45→20:48)
[2019-09-23] MEDS: Gabapentin 100 MG CAP PO SCH ×3 (07:45→20:48)
[2019-09-23] MEDS: BOUDREAUX'S BUTT PASTE TOP SCH ×2 (07:46→20:55)
[2019-09-23] MEDS: A&D OINTMENT TOP SCH ×2 (07:46→21:00)
[2019-09-23] MEDS: NERVE COMPLEX PO SCH ×2 (07:47→22:00)
[2019-09-23] MEDS: NITRIC OXIDE PO SCH (07:47)
[2019-09-23] MEDS: Warfarin Sodium 2 MG TAB PO SCH (16:55)
[2019-09-23] MEDS: Simvastatin 20 MG TAB PO SCH (20:48)
[2019-09-24] MEDS: HYDROcodone/Acetaminophen 10/325 mg Tablet PO PRN ×5 (00:10→20:30)
[2019-09-24] MEDS: Metoprolol Tartrate 25 MG TAB PO SCH ×5 (00:10→23:04)
[2019-09-24 05:52] LABS: INR-International Normal Ratio 2.5; Prothrombin Time 26.6 sec (12.0-14.7)
[2019-09-24] MEDS: Allopurinol 100 MG TAB PO SCH (08:15)
[2019-09-24] MEDS: Potassium Chloride 20 MEQ TAB PO SCH ×2 (08:15→17:05)
[2019-09-24] MEDS: Docusate 100 MG CAP PO SCH ×2 (08:15→20:33)
[2019-09-24] MEDS: Furosemide 80 MG TAB PO SCH ×2 (08:15→14:48)
[2019-09-24] MEDS: Gabapentin 100 MG CAP PO SCH ×3 (08:15→20:31)
[2019-09-24] MEDS: Aspirin 81 mg Enteric Coated Tablet PO SCH (08:15)
[2019-09-24] MEDS: A&D OINTMENT TOP SCH ×2 (08:16→20:32)
[2019-09-24] MEDS: NERVE COMPLEX PO SCH ×2 (08:16→20:28)
[2019-09-24] MEDS: BOUDREAUX'S BUTT PASTE TOP SCH ×2 (08:16→20:32)
[2019-09-24] MEDS: NITRIC OXIDE PO SCH (08:17)
[2019-09-24 13:51] LABS: Anion Gap 16 mmol/L (10-20); BUN (Urea Nitrogen) 40 mg/dL (9.8-20.1); Calc. Creatinine Clearance 66 mL/min (70-130); Calcium 9.3 mg/dL (7.8-10.44); Carbon Dioxide 24 mmol/L (23-31); Chloride 103 mmol/L (98-107); Estimated GFR-MDRD 37; Glucose 99 mg/dL (83-110); Potassium 4.6 mmol/L (3.5-5.1); Sodium 138 mmol/L (136-145)
[2019-09-24] MEDS: Warfarin Sodium 2 MG TAB PO SCH (17:06)
[2019-09-24] MEDS: Simvastatin 20 MG TAB PO SCH (20:31)
[2019-09-25] MEDS: HYDROcodone/Acetaminophen 10/325 mg Tablet PO PRN ×5 (00:30→21:33)
[2019-09-25] MEDS: Metoprolol Tartrate 25 MG TAB PO SCH ×3 (05:03→17:37)
[2019-09-25 06:01] LABS: INR-International Normal Ratio 2.5; Prothrombin Time 27.2 sec (12.0-14.7)
[2019-09-25] MEDS: Gabapentin 100 MG CAP PO SCH ×3 (08:11→21:36)
[2019-09-25] MEDS: Aspirin 81 mg Enteric Coated Tablet PO SCH (08:11)
[2019-09-25] MEDS: Allopurinol 100 MG TAB PO SCH (08:11)
[2019-09-25] MEDS: Docusate 100 MG CAP PO SCH ×2 (08:11→21:36)
[2019-09-25] MEDS: Furosemide 80 MG TAB PO SCH ×2 (08:11→15:10)
[2019-09-25] MEDS: Potassium Chloride 20 MEQ TAB PO SCH ×2 (08:11→17:37)
[2019-09-25] MEDS: BOUDREAUX'S BUTT PASTE TOP SCH ×2 (08:12→21:38)
[2019-09-25] MEDS: A&D OINTMENT TOP SCH ×2 (08:12→21:39)
[2019-09-25] MEDS: NERVE COMPLEX PO SCH ×2 (08:12→21:37)
[2019-09-25] MEDS: NITRIC OXIDE PO SCH (08:13)
[2019-09-25] MEDS: Warfarin Sodium 2 MG TAB PO SCH (17:38)
[2019-09-25] MEDS: Simvastatin 20 MG TAB PO SCH (21:36)
[2019-09-25] MEDS: Nystatin Powder 15 GM BOT TOP PRN (21:38)
[2019-09-26] MEDS: Metoprolol Tartrate 25 MG TAB PO SCH ×4 (00:17→17:19)
[2019-09-26] MEDS: HYDROcodone/Acetaminophen 10/325 mg Tablet PO PRN ×5 (03:05→21:22)
[2019-09-26 05:51] LABS: INR-International Normal Ratio 2.5; Prothrombin Time 27.1 sec (12.0-14.7)
[2019-09-26] MEDS: Metolazone 5 MG TAB PO PRN (06:11)
[2019-09-26] MEDS: Aspirin 81 mg Enteric Coated Tablet PO SCH (08:59)
[2019-09-26] MEDS: Docusate 100 MG CAP PO SCH ×2 (08:59→21:23)
[2019-09-26] MEDS: A&D OINTMENT TOP SCH ×2 (09:00→21:24)
[2019-09-26] MEDS: Potassium Chloride 20 MEQ TAB PO SCH ×2 (09:00→17:19)
[2019-09-26] MEDS: Furosemide 80 MG TAB PO SCH ×2 (09:00→13:00)
[2019-09-26] MEDS: Gabapentin 100 MG CAP PO SCH ×3 (09:00→21:23)
[2019-09-26] MEDS: Allopurinol 100 MG TAB PO SCH (09:00)
[2019-09-26] MEDS: BOUDREAUX'S BUTT PASTE TOP SCH ×2 (09:00→21:24)
[2019-09-26] MEDS: NERVE COMPLEX PO SCH ×2 (09:04→21:23)
[2019-09-26] MEDS: NITRIC OXIDE PO SCH (09:05)
[2019-09-26] MEDS: Warfarin Sodium 2 MG TAB PO SCH (17:19)
[2019-09-26] MEDS: Simvastatin 20 MG TAB PO SCH (21:23)
[2019-09-26] MEDS: Nystatin Powder 15 GM BOT TOP PRN (21:24)
[2019-09-27] MEDS: HYDROcodone/Acetaminophen 10/325 mg Tablet PO PRN ×5 (01:20→23:51)
[2019-09-27] MEDS: Metoprolol Tartrate 25 MG TAB PO SCH ×5 (01:20→23:51)
[2019-09-27 06:09] LABS: INR-International Normal Ratio 2.7; Prothrombin Time 28.7 sec (12.0-14.7)
[2019-09-27] MEDS: Docusate 100 MG CAP PO SCH ×2 (08:08→21:10)
[2019-09-27] MEDS: Gabapentin 100 MG CAP PO SCH ×3 (08:08→21:10)
[2019-09-27] MEDS: Allopurinol 100 MG TAB PO SCH (08:08)
[2019-09-27] MEDS: Furosemide 80 MG TAB PO SCH ×2 (08:09→13:10)
[2019-09-27] MEDS: Potassium Chloride 20 MEQ TAB PO SCH ×2 (08:09→15:56)
[2019-09-27] MEDS: Aspirin 81 mg Enteric Coated Tablet PO SCH (08:09)
[2019-09-27] MEDS: A&D OINTMENT TOP SCH ×2 (10:23→21:45)
[2019-09-27] MEDS: NERVE COMPLEX PO SCH ×2 (10:24→21:46)
[2019-09-27] MEDS: NITRIC OXIDE PO SCH (10:24)
[2019-09-27] MEDS: BOUDREAUX'S BUTT PASTE TOP SCH ×2 (10:24→21:45)
[2019-09-27] MEDS: Nystatin Powder 15 GM BOT TOP PRN (15:51)
[2019-09-27] MEDS: Warfarin Sodium 2 MG TAB PO SCH (15:56)
[2019-09-27] MEDS: Acetaminophen 325 MG TAB PO PRN (21:10)
[2019-09-27] MEDS: Metolazone 5 MG TAB PO PRN (21:10)
[2019-09-27] MEDS: Simvastatin 20 MG TAB PO SCH (21:10)
[2019-09-28] MEDS: HYDROcodone/Acetaminophen 10/325 mg Tablet PO PRN ×5 (05:15→23:32)
[2019-09-28] MEDS: Metoprolol Tartrate 25 MG TAB PO SCH ×4 (05:16→23:32)
[2019-09-28 06:10] LABS: INR-International Normal Ratio 2.5; Prothrombin Time 26.5 sec (12.0-14.7)
[2019-09-28] MEDS: Gabapentin 100 MG CAP PO SCH ×3 (08:11→21:35)
[2019-09-28] MEDS: Aspirin 81 mg Enteric Coated Tablet PO SCH (08:11)
[2019-09-28] MEDS: Furosemide 80 MG TAB PO SCH ×2 (08:11→13:51)
[2019-09-28] MEDS: Potassium Chloride 20 MEQ TAB PO SCH ×2 (08:11→17:13)
[2019-09-28] MEDS: Allopurinol 100 MG TAB PO SCH (08:11)
[2019-09-28] MEDS: Docusate 100 MG CAP PO SCH ×2 (08:11→21:35)
[2019-09-28] MEDS: NERVE COMPLEX PO SCH ×2 (08:15→21:34)
[2019-09-28] MEDS: NITRIC OXIDE PO SCH (08:16)
[2019-09-28] MEDS: BOUDREAUX'S BUTT PASTE TOP SCH ×2 (09:41→22:30)
[2019-09-28] MEDS: A&D OINTMENT TOP SCH ×2 (09:41→22:30)
[2019-09-28] MEDS: Warfarin Sodium 2 MG TAB PO SCH (17:14)
[2019-09-28] MEDS: Simvastatin 20 MG TAB PO SCH (21:35)
[2019-09-29] MEDS: HYDROcodone/Acetaminophen 10/325 mg Tablet PO PRN ×4 (03:57→21:26)
[2019-09-29 06:02] LABS: INR-International Normal Ratio 2.4; Prothrombin Time 25.9 sec (12.0-14.7)
[2019-09-29] MEDS: Metoprolol Tartrate 25 MG TAB PO SCH ×4 (06:29→23:57)
[2019-09-29] MEDS: Allopurinol 100 MG TAB PO SCH (08:28)
[2019-09-29] MEDS: Gabapentin 100 MG CAP PO SCH ×3 (08:28→21:22)
[2019-09-29] MEDS: Furosemide 80 MG TAB PO SCH ×2 (08:28→15:02)
[2019-09-29] MEDS: Docusate 100 MG CAP PO SCH ×2 (08:28→21:22)
[2019-09-29] MEDS: Potassium Chloride 20 MEQ TAB PO SCH ×2 (08:28→17:26)
[2019-09-29] MEDS: Aspirin 81 mg Enteric Coated Tablet PO SCH (08:28)
[2019-09-29] MEDS: BOUDREAUX'S BUTT PASTE TOP SCH ×2 (08:29→21:21)
[2019-09-29] MEDS: NERVE COMPLEX PO SCH ×2 (08:29→21:25)
[2019-09-29] MEDS: A&D OINTMENT TOP SCH ×2 (08:29→21:22)
[2019-09-29] MEDS: NITRIC OXIDE PO SCH (08:30)
[2019-09-29 11:06] LABS: #Basophils 0.1 thou/uL (0.0-0.2); #Eosinphils 0.3 thou/uL (0.0-0.7); #Lymphocytes 0.7 thou/uL (1.20-3.40); #Monocytes 0.6 thou/uL (0.11-0.59); #Neutrophils 3.8 thou/uL (1.40-6.50); %Basophils 1.5 % (0.0-1.0); %Eosinophils 4.6 % (0.0-10.0); %Lymphocytes 13.6 % (21.0-51.0); %Monocytes 10.8 % (0.0-10.0); %Neutrophils 69.4 % (42.0-75.0); Hemoglobin 10.2 g/dL (12.0-16.0); Mean Corpuscular HGB CONC 29.6 g/dL (32.0-36.0); Mean Corpuscular Hemoglobin 29.9 pg (27.0-31.0); Mean Corpuscular Volume 100.9 fL (78.0-98.0); Mean Platelet Volume 9.3 fL (7.4-10.4); Platelet Count 152 thou/uL (130-400); Red Blood Cell (RBC) Count 3.42 mill/uL (4.20-5.40); White Blood Cell (WBC) Count 5.4 thou/uL (4.8-10.8)
[2019-09-29 11:26] LABS: Anion Gap 15 mmol/L (10-20); BUN (Urea Nitrogen) 59 mg/dL (9.8-20.1); Calc. Creatinine Clearance 65 mL/min (70-130); Calcium 9.2 mg/dL (7.8-10.44); Carbon Dioxide 26 mmol/L (23-31); Chloride 99 mmol/L (98-107); Estimated GFR-MDRD 37; Glucose 124 mg/dL (83-110); Potassium 4.2 mmol/L (3.5-5.1); Sodium 136 mmol/L (136-145)
[2019-09-29 11:45] VITALS: BMI 44.4
[2019-09-29] MEDS: Metolazone 5 MG TAB PO PRN (15:12)
[2019-09-29] MEDS: Warfarin Sodium 2 MG TAB PO SCH (17:26)
[2019-09-29] MEDS: Simvastatin 20 MG TAB PO SCH (21:22)
[2019-09-30] MEDS: HYDROcodone/Acetaminophen 10/325 mg Tablet PO PRN ×5 (03:24→21:50)
[2019-09-30] MEDS: Metoprolol Tartrate 25 MG TAB PO SCH ×3 (05:40→17:29)
[2019-09-30] MEDS: Aspirin 81 mg Enteric Coated Tablet PO SCH (08:29)
[2019-09-30] MEDS: Furosemide 80 MG TAB PO SCH ×2 (08:29→14:34)
[2019-09-30] MEDS: Gabapentin 100 MG CAP PO SCH ×3 (08:29→21:49)
[2019-09-30] MEDS: Potassium Chloride 20 MEQ TAB PO SCH ×2 (08:29→17:29)
[2019-09-30] MEDS: Allopurinol 100 MG TAB PO SCH (08:29)
[2019-09-30] MEDS: Docusate 100 MG CAP PO SCH ×2 (08:29→21:49)
[2019-09-30] MEDS: A&D OINTMENT TOP SCH ×2 (08:30→21:52)
[2019-09-30] MEDS: BOUDREAUX'S BUTT PASTE TOP SCH ×2 (08:30→21:51)
[2019-09-30] MEDS: NITRIC OXIDE PO SCH (08:31)
[2019-09-30] MEDS: NERVE COMPLEX PO SCH ×2 (08:39→21:49)
[2019-09-30 08:57] LABS: INR-International Normal Ratio 2.1; Prothrombin Time 23.6 sec (12.0-14.7)
[2019-09-30] MEDS: Warfarin Sodium 2 MG TAB PO SCH (17:29)
[2019-09-30] MEDS: Simvastatin 20 MG TAB PO SCH (21:50)
[2019-10-01] MEDS: Metoprolol Tartrate 25 MG TAB PO SCH ×5 (00:43→22:58)
[2019-10-01] MEDS: Acetaminophen 325 MG TAB PO PRN ×2 (00:44→10:30)
[2019-10-01] MEDS: HYDROcodone/Acetaminophen 10/325 mg Tablet PO PRN ×5 (03:14→20:17)
[2019-10-01] MEDS: Potassium Chloride 20 MEQ TAB PO SCH ×2 (07:09→17:17)
[2019-10-01] MEDS: A&D OINTMENT TOP SCH ×2 (07:09→20:19)
[2019-10-01] MEDS: Aspirin 81 mg Enteric Coated Tablet PO SCH (07:09)
[2019-10-01] MEDS: Gabapentin 100 MG CAP PO SCH ×3 (07:09→20:17)
[2019-10-01] MEDS: Allopurinol 100 MG TAB PO SCH (07:09)
[2019-10-01] MEDS: Furosemide 80 MG TAB PO SCH ×2 (07:09→14:57)
[2019-10-01] MEDS: Docusate 100 MG CAP PO SCH ×2 (07:09→20:18)
[2019-10-01] MEDS: BOUDREAUX'S BUTT PASTE TOP SCH ×2 (07:10→20:19)
[2019-10-01 08:01] LABS: INR-International Normal Ratio 2.1; Prothrombin Time 23.2 sec (12.0-14.7)
[2019-10-01] MEDS: NITRIC OXIDE PO SCH (11:52)
[2019-10-01] MEDS: NERVE COMPLEX PO SCH ×2 (11:53→20:18)
[2019-10-01] MEDS: Warfarin Sodium 2 MG TAB PO SCH (17:18)
[2019-10-01] MEDS: Simvastatin 20 MG TAB PO SCH (20:18)
[2019-10-02] MEDS: HYDROcodone/Acetaminophen 10/325 mg Tablet PO PRN ×5 (02:29→22:21)
[2019-10-02 05:51] LABS: INR-International Normal Ratio 2.3; Prothrombin Time 25.4 sec (12.0-14.7)
[2019-10-02] MEDS: Metoprolol Tartrate 25 MG TAB PO SCH ×4 (06:18→23:45)
[2019-10-02] MEDS: Docusate 100 MG CAP PO SCH ×2 (08:01→20:45)
[2019-10-02] MEDS: Potassium Chloride 20 MEQ TAB PO SCH ×2 (08:01→17:09)
[2019-10-02] MEDS: Allopurinol 100 MG TAB PO SCH (08:01)
[2019-10-02] MEDS: A&D OINTMENT TOP SCH ×2 (08:01→20:46)
[2019-10-02] MEDS: Furosemide 80 MG TAB PO SCH ×2 (08:01→15:04)
[2019-10-02] MEDS: Gabapentin 100 MG CAP PO SCH ×3 (08:01→20:45)
[2019-10-02] MEDS: Aspirin 81 mg Enteric Coated Tablet PO SCH (08:01)
[2019-10-02] MEDS: NERVE COMPLEX PO SCH ×2 (08:02→20:50)
[2019-10-02] MEDS: BOUDREAUX'S BUTT PASTE TOP SCH ×2 (08:02→20:45)
[2019-10-02] MEDS: NITRIC OXIDE PO SCH (08:02)
[2019-10-02] MEDS: Warfarin Sodium 2 MG TAB PO SCH (17:10)
[2019-10-02] MEDS: Simvastatin 20 MG TAB PO SCH (20:45)
[2019-10-03 05:58] LABS: INR-International Normal Ratio 2.2
[2019-10-03] MEDS: Metoprolol Tartrate 25 MG TAB PO SCH ×3 (06:27→17:54)
[2019-10-03] MEDS: HYDROcodone/Acetaminophen 10/325 mg Tablet PO PRN ×4 (06:32→21:56)
[2019-10-03] MEDS: Furosemide 80 MG TAB PO SCH ×2 (08:23→16:01)
[2019-10-03] MEDS: Docusate 100 MG CAP PO SCH ×2 (08:23→20:13)
[2019-10-03] MEDS: Potassium Chloride 20 MEQ TAB PO SCH ×2 (08:23→16:01)
[2019-10-03] MEDS: Allopurinol 100 MG TAB PO SCH (08:23)
[2019-10-03] MEDS: Aspirin 81 mg Enteric Coated Tablet PO SCH (08:24)
[2019-10-03] MEDS: Gabapentin 100 MG CAP PO SCH ×3 (08:24→20:13)
[2019-10-03] MEDS: NITRIC OXIDE PO SCH (08:29)
[2019-10-03] MEDS: NERVE COMPLEX PO SCH ×2 (08:29→20:15)
[2019-10-03] MEDS: BOUDREAUX'S BUTT PASTE TOP SCH ×2 (10:21→20:14)
[2019-10-03] MEDS: A&D OINTMENT TOP SCH ×2 (10:21→20:14)
[2019-10-03] MEDS: Warfarin Sodium 2 MG TAB PO SCH (16:01)
[2019-10-03] MEDS: Simvastatin 20 MG TAB PO SCH (20:13)
[2019-10-04] MEDS: Metoprolol Tartrate 25 MG TAB PO SCH ×5 (00:31→22:59)
[2019-10-04] MEDS: HYDROcodone/Acetaminophen 10/325 mg Tablet PO PRN ×4 (02:55→21:54)
[2019-10-04 06:00] LABS: INR-International Normal Ratio 2.3
[2019-10-04] MEDS: Potassium Chloride 20 MEQ TAB PO SCH ×2 (08:35→17:12)
[2019-10-04] MEDS: Furosemide 80 MG TAB PO SCH ×2 (08:35→15:35)
[2019-10-04] MEDS: Allopurinol 100 MG TAB PO SCH (08:35)
[2019-10-04] MEDS: Aspirin 81 mg Enteric Coated Tablet PO SCH (08:35)
[2019-10-04] MEDS: Gabapentin 100 MG CAP PO SCH ×3 (08:35→20:27)
[2019-10-04] MEDS: Docusate 100 MG CAP PO SCH ×2 (08:36→20:27)
[2019-10-04] MEDS: NERVE COMPLEX PO SCH ×2 (08:37→20:28)
[2019-10-04] MEDS: A&D OINTMENT TOP SCH ×2 (08:37→20:29)
[2019-10-04] MEDS: BOUDREAUX'S BUTT PASTE TOP SCH ×2 (08:37→20:29)
[2019-10-04] MEDS: NITRIC OXIDE PO SCH (08:38)
[2019-10-04] MEDS: Warfarin Sodium 2 MG TAB PO SCH (17:13)
[2019-10-04] MEDS: Simvastatin 20 MG TAB PO SCH (20:27)
[2019-10-05] MEDS: HYDROcodone/Acetaminophen 10/325 mg Tablet PO PRN ×4 (03:35→22:13)
[2019-10-05] MEDS: Metoprolol Tartrate 25 MG TAB PO SCH ×4 (05:27→23:02)
[2019-10-05 05:59] LABS: INR-International Normal Ratio 2.3; Prothrombin Time 25.5 sec (12.0-14.7)
[2019-10-05] MEDS: Docusate 100 MG CAP PO SCH ×2 (08:13→20:12)
[2019-10-05] MEDS: Aspirin 81 mg Enteric Coated Tablet PO SCH (08:13)
[2019-10-05] MEDS: Potassium Chloride 20 MEQ TAB PO SCH ×2 (08:13→17:24)
[2019-10-05] MEDS: Gabapentin 100 MG CAP PO SCH ×3 (08:14→20:12)
[2019-10-05] MEDS: Allopurinol 100 MG TAB PO SCH (08:14)
[2019-10-05] MEDS: Furosemide 80 MG TAB PO SCH ×2 (08:14→14:52)
[2019-10-05] MEDS: A&D OINTMENT TOP SCH ×2 (08:14→20:13)
[2019-10-05] MEDS: BOUDREAUX'S BUTT PASTE TOP SCH ×2 (08:15→20:13)
[2019-10-05] MEDS: NERVE COMPLEX PO SCH ×2 (08:15→20:11)
[2019-10-05] MEDS: NITRIC OXIDE PO SCH (08:15)
[2019-10-05] MEDS: Warfarin Sodium 2 MG TAB PO SCH (17:25)
[2019-10-05] MEDS: Simvastatin 20 MG TAB PO SCH (20:12)
[2019-10-06] MEDS: HYDROcodone/Acetaminophen 10/325 mg Tablet PO PRN ×4 (03:20→22:35)
[2019-10-06] MEDS: Metoprolol Tartrate 25 MG TAB PO SCH ×4 (05:40→23:16)
[2019-10-06 06:04] LABS: INR-International Normal Ratio 2.4; Prothrombin Time 25.8 sec (12.0-14.7)
[2019-10-06] MEDS: NERVE COMPLEX PO SCH ×2 (07:58→20:39)
[2019-10-06] MEDS: NITRIC OXIDE PO SCH (07:59)
[2019-10-06] MEDS: Gabapentin 100 MG CAP PO SCH ×3 (07:59→20:36)
[2019-10-06] MEDS: A&D OINTMENT TOP SCH ×2 (07:59→21:00)
[2019-10-06] MEDS: Docusate 100 MG CAP PO SCH ×2 (07:59→20:35)
[2019-10-06] MEDS: Allopurinol 100 MG TAB PO SCH (07:59)
[2019-10-06] MEDS: Furosemide 80 MG TAB PO SCH ×2 (07:59→14:36)
[2019-10-06] MEDS: Aspirin 81 mg Enteric Coated Tablet PO SCH (07:59)
[2019-10-06] MEDS: Potassium Chloride 20 MEQ TAB PO SCH ×2 (07:59→17:47)
[2019-10-06] MEDS: BOUDREAUX'S BUTT PASTE TOP SCH ×2 (07:59→21:00)
[2019-10-06 12:15] LABS: SARS-CoV-2 MS2 Positive; SARS-CoV-2 N Gene Negative; SARS-CoV-2 S Gene Negative; SARS-CoV-2 orf1ab Negative
[2019-10-06] MEDS: Warfarin Sodium 2 MG TAB PO SCH (17:48)
[2019-10-06] MEDS: Simvastatin 20 MG TAB PO SCH (20:36)
[2019-10-07] MEDS: HYDROcodone/Acetaminophen 10/325 mg Tablet PO PRN ×3 (03:51→22:51)
[2019-10-07] MEDS: Metoprolol Tartrate 25 MG TAB PO SCH ×4 (05:39→22:58)
[2019-10-07 07:04] LABS: #Basophils 0.1 thou/uL (0.0-0.2); #Eosinphils 0.3 thou/uL (0.0-0.7); #Lymphocytes 0.9 thou/uL (1.20-3.40); #Monocytes 0.5 thou/uL (0.11-0.59); #Neutrophils 3.5 thou/uL (1.40-6.50); %Basophils 1.9 % (0.0-1.0); %Eosinophils 5.2 % (0.0-10.0); %Lymphocytes 17.4 % (21.0-51.0); %Neutrophils 65.5 % (42.0-75.0); Hemoglobin 10.2 g/dL (12.0-16.0); Mean Corpuscular Hemoglobin 30.1 pg (27.0-31.0); Mean Corpuscular Volume 100.4 fL (78.0-98.0); Mean Platelet Volume 9.8 fL (7.4-10.4); Platelet Count 166 thou/uL (130-400); White Blood Cell (WBC) Count 5.3 thou/uL (4.8-10.8)
[2019-10-07 07:17] LABS: Anion Gap 15 mmol/L (10-20); BUN (Urea Nitrogen) 56 mg/dL (9.8-20.1); Calc. Creatinine Clearance 76 mL/min (70-130); Calcium 9.6 mg/dL (7.8-10.44); Carbon Dioxide 26 mmol/L (23-31); Chloride 105 mmol/L (98-107); Estimated GFR-MDRD 45; Glucose 114 mg/dL (83-110); Potassium 4.1 mmol/L (3.5-5.1); Sodium 142 mmol/L (136-145)
[2019-10-07 07:44] LABS: INR-International Normal Ratio 1.9; Prothrombin Time 21.4 sec (12.0-14.7)
[2019-10-07] MEDS: Nystatin Powder 15 GM BOT TOP PRN (07:55)
[2019-10-07] MEDS: Allopurinol 100 MG TAB PO SCH (07:56)
[2019-10-07] MEDS: Docusate 100 MG CAP PO SCH ×2 (07:56→20:56)
[2019-10-07] MEDS: Aspirin 81 mg Enteric Coated Tablet PO SCH (07:56)
[2019-10-07] MEDS: Furosemide 80 MG TAB PO SCH ×2 (07:56→15:21)
[2019-10-07] MEDS: Potassium Chloride 20 MEQ TAB PO SCH ×2 (07:56→17:02)
[2019-10-07] MEDS: Gabapentin 100 MG CAP PO SCH ×3 (07:56→20:56)
[2019-10-07] MEDS: BOUDREAUX'S BUTT PASTE TOP SCH ×2 (07:57→20:58)
[2019-10-07] MEDS: NERVE COMPLEX PO SCH ×2 (07:57→20:57)
[2019-10-07] MEDS: A&D OINTMENT TOP SCH ×2 (07:57→20:59)
[2019-10-07] MEDS: NITRIC OXIDE PO SCH (07:58)
[2019-10-07] MEDS: Warfarin Sodium 2 MG TAB PO SCH (17:03)
[2019-10-07] MEDS: Simvastatin 20 MG TAB PO SCH (20:56)
[2019-10-08] MEDS: Metoprolol Tartrate 25 MG TAB PO SCH ×2 (05:23→12:30)
[2019-10-08] MEDS: HYDROcodone/Acetaminophen 10/325 mg Tablet PO PRN ×2 (05:23→12:24)
[2019-10-08] MEDS: Allopurinol 100 MG TAB PO SCH (08:59)
[2019-10-08] MEDS: Docusate 100 MG CAP PO SCH (08:59)
[2019-10-08] MEDS: Gabapentin 100 MG CAP PO SCH (08:59)
[2019-10-08] MEDS: Furosemide 80 MG TAB PO SCH ×2 (09:00→12:34)
[2019-10-08] MEDS: Potassium Chloride 20 MEQ TAB PO SCH (09:01)
[2019-10-08] MEDS: Aspirin 81 mg Enteric Coated Tablet PO SCH (09:01)
[2019-10-08] MEDS: NITRIC OXIDE PO SCH (09:02)
[2019-10-08] MEDS: NERVE COMPLEX PO SCH (09:02)
[2019-10-08] MEDS: Acetaminophen 325 MG TAB PO PRN (09:05)
[2019-10-08 12:02] VITALS: BP 131/77; TEMP 97.7
[2019-10-08] MEDS: BOUDREAUX'S BUTT PASTE TOP SCH (12:29)
[2019-10-08] MEDS: A&D OINTMENT TOP SCH (12:29)
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
== END 2019-10-08 14:25 | disposition home health service (06) | DRG 560 ==
LOC: MADMS 17:30
PROVIDERS: ADMIT Family Medicine; ATTEND Family Medicine
DX: S52.502D Unspecified fracture of the lower end of left radius, subsequent encounter for closed fracture with routine healing (principal); I42.8 Other cardiomyopathies; I48.20 Chronic atrial fibrillation, unspecified; N17.9 Acute kidney failure, unspecified; I13.0 Hypertensive heart and chronic kidney disease with heart failure and stage 1 through stage 4 chronic kidney disease, or unspecified chronic kidney disease; S22.42XD Multiple fractures of ribs, left side, subsequent encounter for fracture with routine healing; R26.9 Unspecified abnormalities of gait and mobility; I95.9 Hypotension, unspecified; Z96.653 Presence of artificial knee joint, bilateral; E78.5 Hyperlipidemia, unspecified; N18.3 Chronic kidney disease, stage 3 (moderate); D63.1 Anemia in chronic kidney disease; L89.151 Pressure ulcer of sacral region, stage 1; I50.9 Heart failure, unspecified; R09.02 Hypoxemia; E11.22 Type 2 diabetes mellitus with diabetic chronic kidney disease; L89.152 Pressure ulcer of sacral region, stage 2; Z79.4 Long term (current) use of insulin; V49.9XXA Car occupant (driver) (passenger) injured in unspecified traffic accident, initial encounter; Z79.01 Long term (current) use of anticoagulants; Z95.0 Presence of cardiac pacemaker; Z90.49 Acquired absence of other specified parts of digestive tract; Z88.0 Allergy status to penicillin; Z88.8 Allergy status to other drugs, medicaments and biological substances; Z90.710 Acquired absence of both cervix and uterus
CPT/HCPCS: 36415; 36416; 71045; 80048; 80053; 81001; 83880; 85025; 85610; 87077; 87086; 87186; 87635; U0003

== ENCOUNTER 2019-10-20 08:19 | Outpatient (CLI) | payer MEDICARE ==
[2019-10-20 08:43] LABS: INR-International Normal Ratio 2.5; Prothrombin Time 26.4 sec (12.0-14.7)
== END 2019-10-20 08:20 | disposition home or self-care (01) ==
LOC: MADLAB 08:19
PROVIDERS: ATTEND Family Medicine
DX: Z51.81 Encounter for therapeutic drug level monitoring (principal); I48.91 Unspecified atrial fibrillation; Z79.01 Long term (current) use of anticoagulants
CPT/HCPCS: 36415; 85610

== ENCOUNTER 2019-11-11 07:32 | Outpatient (CLI) | payer MEDICARE ==
[2019-11-11 08:16] LABS: INR-International Normal Ratio 2.2; Prothrombin Time 24.4 sec (12.0-14.7)
== END 2019-11-11 07:33 | disposition home or self-care (01) ==
LOC: MADLAB 07:32
PROVIDERS: ATTEND Family Medicine
DX: Z51.81 Encounter for therapeutic drug level monitoring (principal); I48.91 Unspecified atrial fibrillation; Z79.01 Long term (current) use of anticoagulants
CPT/HCPCS: 36415; 85610

== ENCOUNTER 2019-11-25 07:14 | Outpatient (CLI) | payer MEDICARE ==
[2019-11-25 07:45] LABS: INR-International Normal Ratio 1.3; Prothrombin Time 16.6 sec (12.0-14.7)
== END 2019-11-25 07:15 | disposition home or self-care (01) ==
LOC: MADLAB 07:14
PROVIDERS: ATTEND Family Medicine
DX: Z51.81 Encounter for therapeutic drug level monitoring (principal); I48.91 Unspecified atrial fibrillation; Z79.01 Long term (current) use of anticoagulants
CPT/HCPCS: 36415; 85610

== ENCOUNTER 2019-12-02 08:39 | Outpatient (CLI) | payer MEDICARE ==
[2019-12-02 09:37] LABS: INR-International Normal Ratio 1.6; Prothrombin Time 19.3 sec (12.0-14.7)
== END 2019-12-02 08:40 | disposition home or self-care (01) ==
LOC: MADLAB 08:39
PROVIDERS: ATTEND Family Medicine
DX: Z51.81 Encounter for therapeutic drug level monitoring (principal); I48.91 Unspecified atrial fibrillation; Z79.01 Long term (current) use of anticoagulants
CPT/HCPCS: 36415; 85610

== ENCOUNTER 2019-12-09 07:23 | Outpatient (CLI) | payer MEDICARE ==
[2019-12-09 08:21] LABS: INR-International Normal Ratio 2.2
== END 2019-12-09 07:24 | disposition home or self-care (01) ==
LOC: MADLAB 07:23
PROVIDERS: ATTEND Family Medicine
DX: Z51.81 Encounter for therapeutic drug level monitoring (principal); I48.91 Unspecified atrial fibrillation; Z79.01 Long term (current) use of anticoagulants
CPT/HCPCS: 36415; 85610

== ENCOUNTER 2019-12-17 09:28 | Outpatient (CLI) | payer MEDICARE ==
[2019-12-17 09:53] LABS: #Eosinphils 0.4 thou/uL (0.0-0.7); #Lymphocytes 1.2 thou/uL (1.20-3.40); #Monocytes 0.6 thou/uL (0.11-0.59); #Neutrophils 2.8 thou/uL (1.40-6.50); %Eosinophils 8.8 % (0.0-10.0); %Lymphocytes 23.8 % (21.0-51.0); %Monocytes 11.4 % (0.0-10.0); %Neutrophils 55.2 % (42.0-75.0); Hemoglobin 12.3 g/dL (12.0-16.0); Mean Corpuscular HGB CONC 30.7 g/dL (32.0-36.0); Mean Corpuscular Hemoglobin 29.1 pg (27.0-31.0); Platelet Count 228 thou/uL (130-400); RBC Distribution Width 13.5 % (11.5-14.5); Red Blood Cell (RBC) Count 4.23 mill/uL (4.20-5.40); White Blood Cell (WBC) Count 5.1 thou/uL (4.8-10.8)
[2019-12-17 10:00] LABS: Prothrombin Time 22.4 sec (12.0-14.7)
[2019-12-17 10:10] LABS: ALT (SGPT) 15 U/L (8-55); AST (SGOT) 15 U/L (5-34); Albumin 3.7 g/dL (3.4-4.8); Alkaline Phosphatase 120 U/L (40-110); Anion Gap 17 mmol/L (10-20); BUN (Urea Nitrogen) 50 mg/dL (9.8-20.1); Bilirubin, Total 0.4 mg/dL (0.2-1.2); Calc. Creatinine Clearance 0 mL/min (70-130); Calcium 9.7 mg/dL (7.8-10.44); Carbon Dioxide 26 mmol/L (23-31); Cardiac Risk 3.6 (Less than 4.5); Chloride 100 mmol/L (98-107); Cholesterol 132 mg/dl (< 200 Desired); Globulin 3.6 g/dL (2.4-3.5); Glucose 121 mg/dL (83-110); HDL Cholesterol 37 mg/dL (>60 Neg Risk); LDL Cholesterol, Calculated 74 mg/dL; Potassium 4.5 mmol/L (3.5-5.1); Protein, Total 7.3 g/dL (6.0-8.3); Sodium 138 mmol/L (136-145); Triglycerides 107 mg/dL (Less than 150); Uric Acid 8.4 mg/dL (2.6-6.0)
[2019-12-17 10:30] LABS: Thyroid Stimulating Hormone 1.9825 uIU/mL (0.35-4.94)
[2019-12-17 17:28] LABS: Hemoglobin A1c 6.1 % (4.0-6.0)
[2019-12-17 18:32] LABS: Free T4 (Free Thyroxine) 1.21 ng/dL (0.70-1.48)
[2019-12-17 18:44] LABS: Vitamin D, 25 Hydroxy 37.2 ng/ml (> 30.0)
[2019-12-18 17:56] LABS: Creatinine, Urine 35.16 mg/dL (47-110); Microalbumin Urine Less than 1.0 mg/dL (0.5-50.0)
== END 2019-12-17 09:29 | disposition home or self-care (01) ==
LOC: MADLAB 09:28
PROVIDERS: ATTEND Family Medicine
DX: E11.9 Type 2 diabetes mellitus without complications (principal); I48.91 Unspecified atrial fibrillation; M10.9 Gout, unspecified; M81.0 Age-related osteoporosis without current pathological fracture
CPT/HCPCS: 36415; 80053; 80061; 82043; 82306; 83036; 84439; 84443; 84550; 85025; 85610

== ENCOUNTER 2020-01-12 10:45 | Outpatient (CLI) | payer MEDICARE ==
[2020-01-12 11:28] LABS: INR-International Normal Ratio 2.3; Prothrombin Time 25.8 sec (12.0-14.7)
== END 2020-01-12 10:46 | disposition home or self-care (01) ==
LOC: MADLAB 10:45
PROVIDERS: ATTEND Family Medicine
DX: Z51.81 Encounter for therapeutic drug level monitoring (principal); I48.91 Unspecified atrial fibrillation; Z79.01 Long term (current) use of anticoagulants
CPT/HCPCS: 36415; 85610

== ENCOUNTER 2020-02-26 10:13 | Outpatient (CLI) | payer MEDICARE ==
[2020-02-26 10:50] LABS: Prothrombin Time 31.9 sec (12.0-14.7)
== END 2020-02-26 10:14 | disposition home or self-care (01) ==
LOC: MADLAB 10:13
PROVIDERS: ATTEND Family Medicine
DX: Z51.81 Encounter for therapeutic drug level monitoring (principal); I48.91 Unspecified atrial fibrillation; Z79.01 Long term (current) use of anticoagulants
CPT/HCPCS: 36415; 85610

== ENCOUNTER 2020-05-13 11:55 | Outpatient (CLI) | payer MEDICARE ==
[2020-05-13 12:51] LABS: INR-International Normal Ratio 1.3; Prothrombin Time 16.1 sec (12.0-14.7)
== END 2020-05-13 11:56 | disposition home or self-care (01) ==
LOC: MADLAB 11:55
PROVIDERS: ATTEND Family Medicine
DX: Z51.81 Encounter for therapeutic drug level monitoring (principal); I48.91 Unspecified atrial fibrillation; Z79.01 Long term (current) use of anticoagulants
CPT/HCPCS: 36415; 85610

== ENCOUNTER 2020-05-17 15:40 | Outpatient (CLI) | payer MEDICARE ==
[2020-05-17 16:29] LABS: INR-International Normal Ratio 1.3; Prothrombin Time 16.1 sec (12.0-14.7)
== END 2020-05-17 15:41 | disposition home or self-care (01) ==
LOC: MADLAB 15:40
PROVIDERS: ATTEND Family Medicine
DX: Z51.81 Encounter for therapeutic drug level monitoring (principal); I48.91 Unspecified atrial fibrillation; Z79.01 Long term (current) use of anticoagulants
CPT/HCPCS: 36415; 85610

== ENCOUNTER 2020-06-29 08:02 | Outpatient (CLI) | payer MEDICARE ==
[2020-06-29 08:17] LABS: #Basophils 0.1 thou/uL (0.0-0.2); #Eosinphils 0.3 thou/uL (0.0-0.7); #Lymphocytes 1.3 thou/uL (1.20-3.40); #Monocytes 0.5 thou/uL (0.11-0.59); %Basophils 1.2 % (0.0-1.0); %Eosinophils 4.9 % (0.0-10.0); %Lymphocytes 20.9 % (21.0-51.0); %Monocytes 7.8 % (0.0-10.0); %Neutrophils 65.2 % (42.0-75.0); Hemoglobin 12.5 g/dL (12.0-16.0); Mean Corpuscular HGB CONC 32.3 g/dL (32.0-36.0); Mean Corpuscular Volume 95.9 fL (78.0-98.0); Mean Platelet Volume 10.7 fL (7.4-10.4); Platelet Count 155 thou/uL (130-400); RBC Distribution Width 13.3 % (11.5-14.5); Red Blood Cell (RBC) Count 4.04 mill/uL (4.20-5.40); White Blood Cell (WBC) Count 6.1 thou/uL (4.8-10.8)
[2020-06-29 08:34] LABS: ALT (SGPT) 14 U/L (8-55); AST (SGOT) 17 U/L (5-34); Albumin 3.9 g/dL (3.4-4.8); Alkaline Phosphatase 114 U/L (40-110); Anion Gap 16 mmol/L (10-20); Bilirubin, Total 0.6 mg/dL (0.2-1.2); Calc. Creatinine Clearance 0 mL/min (70-130); Calcium 10.2 mg/dL (7.8-10.44); Carbon Dioxide 33 mmol/L (23-31); Cardiac Risk 3.1 (Less than 4.5); Chloride 95 mmol/L (98-107); Cholesterol 118 mg/dl (< 200 Desired); Globulin 3.6 g/dL (2.4-3.5); Glucose 141 mg/dL (83-110); HDL Cholesterol 38 mg/dL (>60 Neg Risk); LDL Cholesterol, Calculated 60 mg/dL; Potassium 4.2 mmol/L (3.5-5.1); Protein, Total 7.5 g/dL (5.8-8.1); Sodium 140 mmol/L (136-145); Triglycerides 99 mg/dL (Less than 150); Uric Acid 8.3 mg/dL (2.6-6.0)
[2020-06-29 10:19] LABS: BUN (Urea Nitrogen) 117 mg/dL (9.8-20.1)
== END 2020-06-29 08:03 | disposition home or self-care (01) ==
LOC: MADLAB 08:02
PROVIDERS: ATTEND Family Medicine
DX: E11.9 Type 2 diabetes mellitus without complications (principal); M10.9 Gout, unspecified
CPT/HCPCS: 36415; 80053; 80061; 84550; 85025

== ENCOUNTER 2020-10-30 13:40 | Inpatient (IN) | payer MEDICARE ==
[2020-10-30] MEDS ORDERED: Ondansetron ODT 4 MG TAB PO PRN (17:20)
[2020-10-30] MEDS ORDERED: METAXALONE 400 MG PO PRN (17:42)
[2020-10-30] MEDS: Acetaminophen 500 MG TAB PO PRN (19:20)
[2020-10-30] MEDS: Atorvastatin Calcium 10 MG TAB PO SCH (20:40)
[2020-10-30] MEDS: Ascorbic Acid 500 mg Chewable Tablet PO SCH (20:40)
[2020-10-30] MEDS: Apixaban 5 MG TAB PO SCH ×2 (20:41→20:54)
[2020-10-30] MEDS: Midodrine HCl 2.5 MG TAB PO SCH (20:41)
[2020-10-30] MEDS: Allopurinol 100 MG TAB PO SCH (20:42)
[2020-10-30] MEDS: Senokot S 8.6-50 MG TAB PO PRN (20:48)
[2020-10-30] MEDS: traMADol HCl 50 MG TAB PO PRN (23:34)
[2020-10-31] MEDS ORDERED: Triple Antibiotic Ointment 15 GM TUBE TOP PRN (01:10)
[2020-10-31] MEDS: Acetaminophen 500 MG TAB PO PRN ×2 (04:23→21:32)
[2020-10-31] MEDS: Midodrine HCl 2.5 MG TAB PO SCH ×3 (09:35→20:16)
[2020-10-31] MEDS: traMADol HCl 50 MG TAB PO PRN ×2 (09:36→17:56)
[2020-10-31] MEDS: Cyanocobalamin (Vitamin B-12) 1,000 MCG TAB PO SCH (09:36)
[2020-10-31] MEDS: Zinc Sulfate 220 MG CAP PO SCH (09:36)
[2020-10-31] MEDS: Calcium Carbonate 600 MG + Vit D TAB PO SCH (09:36)
[2020-10-31] MEDS: Cholecalciferol (Vitamin D3) 5,000 UNITS CAPSULE PO SCH (09:37)
[2020-10-31] MEDS: Potassium Chloride 20 MEQ TAB PO SCH (09:37)
[2020-10-31] MEDS: Aspirin 81 mg Enteric Coated Tablet PO SCH (09:37)
[2020-10-31] MEDS: Apixaban 5 MG TAB PO SCH ×2 (09:37→20:20)
[2020-10-31] MEDS: Ascorbic Acid 500 mg Chewable Tablet PO SCH ×2 (09:37→20:17)
[2020-10-31] MEDS: Ferrous Gluconate 324 MG TAB PO SCH ×2 (09:37→16:40)
[2020-10-31] MEDS: Multivitamin W/ Minerals 1 TAB PO SCH (09:38)
[2020-10-31] MEDS: Triple Antibiotic Ointment 15 GM TUBE TOP SCH (09:38)
[2020-10-31] MEDS: Fish Oil 1,000 MG CAP PO SCH (09:38)
[2020-10-31] MEDS: Senokot S 8.6-50 MG TAB PO PRN (20:17)
[2020-10-31] MEDS: Atorvastatin Calcium 10 MG TAB PO SCH (20:18)
[2020-10-31] MEDS: Allopurinol 100 MG TAB PO SCH (20:20)
[2020-11-01] MEDS: traMADol HCl 50 MG TAB PO PRN ×2 (00:36→06:26)
[2020-11-01] MEDS: Multivitamin W/ Minerals 1 TAB PO SCH (09:28)
[2020-11-01] MEDS: Apixaban 5 MG TAB PO SCH (09:28)
[2020-11-01] MEDS: Aspirin 81 mg Enteric Coated Tablet PO SCH (09:28)
[2020-11-01] MEDS: Fish Oil 1,000 MG CAP PO SCH (09:28)
[2020-11-01] MEDS: Cyanocobalamin (Vitamin B-12) 1,000 MCG TAB PO SCH (09:28)
[2020-11-01] MEDS: Calcium Carbonate 600 MG + Vit D TAB PO SCH (09:28)
[2020-11-01] MEDS: Zinc Sulfate 220 MG CAP PO SCH (09:28)
[2020-11-01] MEDS: Ferrous Gluconate 324 MG TAB PO SCH ×2 (09:28→17:09)
[2020-11-01] MEDS: Cholecalciferol (Vitamin D3) 5,000 UNITS CAPSULE PO SCH (09:29)
[2020-11-01] MEDS: Midodrine HCl 2.5 MG TAB PO SCH (09:29)
[2020-11-01] MEDS: Potassium Chloride 20 MEQ TAB PO SCH (09:29)
[2020-11-01] MEDS: Triple Antibiotic Ointment 15 GM TUBE TOP SCH (09:29)
[2020-11-01] MEDS: Ascorbic Acid 500 mg Chewable Tablet PO SCH ×2 (09:29→20:30)
[2020-11-01] MEDS: Acetaminophen 500 MG TAB PO PRN ×2 (09:33→19:07)
[2020-11-01] MEDS ORDERED: Triple Antibiotic Oint 1 GM Packet TOP PRN (09:54)
[2020-11-01] MEDS: traMADol HCl 50 MG TAB PO SCH ×2 (14:22→20:31)
[2020-11-01] MEDS ORDERED: Cyclobenzaprine 10 MG TAB PO PRN (15:59)
[2020-11-01] MEDS: Apixaban 2.5 MG TAB PO SCH (20:29)
[2020-11-01] MEDS: Atorvastatin Calcium 10 MG TAB PO SCH (20:30)
[2020-11-01] MEDS: Cyclobenzaprine 10 MG TAB PO PRN (22:19)
[2020-11-02] MEDS: traMADol HCl 50 MG TAB PO SCH ×4 (02:31→21:41)
[2020-11-02 05:58] LABS: Anion Gap 12 mmol/L (10-20); BUN (Urea Nitrogen) 51 mg/dL (9.8-20.1); Calc. Creatinine Clearance 74 mL/min (70-130); Calcium 9.8 mg/dL (7.8-10.44); Carbon Dioxide 30 mmol/L (23-31); Chloride 102 mmol/L (98-107); Glucose 133 mg/dL (83-110); Potassium 4.1 mmol/L (3.5-5.1); Sodium 140 mmol/L (136-145)
[2020-11-02 06:32] LABS: #Basophils 0.1 thou/uL (0.0-0.2); #Eosinphils 0.5 thou/uL (0.0-0.7); #Monocytes 0.9 thou/uL (0.11-0.59); #Neutrophils 6.3 thou/uL (1.40-6.50); %Basophils 1.1 % (0.0-1.0); %Eosinophils 5.3 % (0.0-10.0); %Lymphocytes 11.3 % (21.0-51.0); %Neutrophils 72.4 % (42.0-75.0); Hemoglobin 7.9 g/dL (12.0-16.0); Mean Corpuscular Hemoglobin 31.6 pg (27.0-31.0); Platelet Count 195 thou/uL (130-400); RBC Distribution Width 15.4 % (11.5-14.5); Red Blood Cell (RBC) Count 2.49 mill/uL (4.20-5.40); White Blood Cell (WBC) Count 8.7 thou/uL (4.8-10.8)
[2020-11-02] MEDS: Zinc Sulfate 220 MG CAP PO SCH (08:22)
[2020-11-02] MEDS: Cyanocobalamin (Vitamin B-12) 1,000 MCG TAB PO SCH (08:22)
[2020-11-02] MEDS: Ferrous Gluconate 324 MG TAB PO SCH ×2 (08:22→17:41)
[2020-11-02] MEDS: Aspirin 81 mg Enteric Coated Tablet PO SCH (08:22)
[2020-11-02] MEDS: Fish Oil 1,000 MG CAP PO SCH (08:22)
[2020-11-02] MEDS: Multivitamin W/ Minerals 1 TAB PO SCH (08:22)
[2020-11-02] MEDS: Apixaban 2.5 MG TAB PO SCH ×2 (08:22→20:21)
[2020-11-02] MEDS: Cholecalciferol (Vitamin D3) 5,000 UNITS CAPSULE PO SCH (08:22)
[2020-11-02] MEDS: Ascorbic Acid 500 mg Chewable Tablet PO SCH ×2 (08:22→20:21)
[2020-11-02] MEDS: Triple Antibiotic Oint 1 GM Packet TOP SCH (08:22)
[2020-11-02] MEDS: Potassium Chloride 20 MEQ TAB PO SCH (08:22)
[2020-11-02] MEDS: Calcium Carbonate 600 MG + Vit D TAB PO SCH (08:22)
[2020-11-02] MEDS: Allopurinol 100 MG TAB PO SCH (08:26)
[2020-11-02] MEDS: Acetaminophen 500 MG TAB PO PRN ×2 (12:08→20:19)
[2020-11-02] MEDS: Atorvastatin Calcium 10 MG TAB PO SCH (20:21)
[2020-11-03] MEDS: traMADol HCl 50 MG TAB PO SCH ×2 (02:56→08:27)
[2020-11-03] MEDS: Cholecalciferol (Vitamin D3) 5,000 UNITS CAPSULE PO SCH (08:28)
[2020-11-03] MEDS: Calcium Carbonate 600 MG + Vit D TAB PO SCH (08:28)
[2020-11-03] MEDS: Ascorbic Acid 500 mg Chewable Tablet PO SCH ×2 (08:28→21:28)
[2020-11-03] MEDS: Triple Antibiotic Oint 1 GM Packet TOP SCH (08:28)
[2020-11-03] MEDS: Ferrous Gluconate 324 MG TAB PO SCH ×2 (08:28→17:35)
[2020-11-03] MEDS: Potassium Chloride 20 MEQ TAB PO SCH (08:28)
[2020-11-03] MEDS: Multivitamin W/ Minerals 1 TAB PO SCH (08:28)
[2020-11-03] MEDS: Aspirin 81 mg Enteric Coated Tablet PO SCH (08:28)
[2020-11-03] MEDS: Zinc Sulfate 220 MG CAP PO SCH (08:28)
[2020-11-03] MEDS: Cyanocobalamin (Vitamin B-12) 1,000 MCG TAB PO SCH (08:28)
[2020-11-03] MEDS: Fish Oil 1,000 MG CAP PO SCH (08:28)
[2020-11-03] MEDS: Apixaban 2.5 MG TAB PO SCH ×2 (08:28→21:28)
[2020-11-03] MEDS ORDERED: HYDROcodone/Acetaminophen 5/325 mg Tablet PO PRN (11:06)
[2020-11-03] MEDS ORDERED: Acetaminophen 500 MG TAB PO PRN (11:46)
[2020-11-03] MEDS ORDERED: traMADol HCl 50 MG TAB PO PRN ×4 (14:38→23:55)
[2020-11-03] MEDS ORDERED: traMADol HCl 50 MG TAB ONE (17:25)
[2020-11-03] MEDS: Acetaminophen 500 MG TAB PO PRN (21:26)
[2020-11-03] MEDS: Atorvastatin Calcium 10 MG TAB PO SCH (21:27)
[2020-11-03] MEDS ORDERED: traMADol HCl 50 MG TAB PO SCH (23:45)
[2020-11-04] MEDS ORDERED: traMADol HCl 50 MG TAB ONE ×2 (00:05→05:57)
[2020-11-04] MEDS: traMADol HCl 50 MG TAB PO PRN ×4 (00:08→18:07)
[2020-11-04] MEDS ORDERED: traMADol HCl 50 MG TAB PO PRN (07:36)
[2020-11-04] MEDS: Zinc Sulfate 220 MG CAP PO SCH (08:27)
[2020-11-04] MEDS: Ascorbic Acid 500 mg Chewable Tablet PO SCH ×2 (08:27→20:46)
[2020-11-04] MEDS: Cyanocobalamin (Vitamin B-12) 1,000 MCG TAB PO SCH (08:27)
[2020-11-04] MEDS: Potassium Chloride 20 MEQ TAB PO SCH (08:27)
[2020-11-04] MEDS: Calcium Carbonate 600 MG + Vit D TAB PO SCH (08:27)
[2020-11-04] MEDS: Ferrous Gluconate 324 MG TAB PO SCH ×2 (08:27→17:07)
[2020-11-04] MEDS: Cholecalciferol (Vitamin D3) 5,000 UNITS CAPSULE PO SCH (08:27)
[2020-11-04] MEDS: Aspirin 81 mg Enteric Coated Tablet PO SCH (08:27)
[2020-11-04] MEDS: Fish Oil 1,000 MG CAP PO SCH (08:27)
[2020-11-04] MEDS: Apixaban 2.5 MG TAB PO SCH ×2 (08:28→20:46)
[2020-11-04] MEDS: Multivitamin W/ Minerals 1 TAB PO SCH (08:28)
[2020-11-04] MEDS: Triple Antibiotic Oint 1 GM Packet TOP SCH (08:28)
[2020-11-04] MEDS: Allopurinol 100 MG TAB PO SCH (08:30)
[2020-11-04] MEDS: Acetaminophen 500 MG TAB PO PRN ×2 (10:38→20:47)
[2020-11-04] MEDS: Cyclobenzaprine 10 MG TAB PO PRN (15:38)
[2020-11-04] MEDS: Atorvastatin Calcium 10 MG TAB PO SCH (20:46)
[2020-11-05] MEDS: traMADol HCl 50 MG TAB PO PRN ×5 (00:07→23:46)
[2020-11-05] MEDS: Ferrous Gluconate 324 MG TAB PO SCH ×2 (08:56→17:13)
[2020-11-05] MEDS: Triple Antibiotic Oint 1 GM Packet TOP SCH (08:56)
[2020-11-05] MEDS: Multivitamin W/ Minerals 1 TAB PO SCH (08:56)
[2020-11-05] MEDS: Ascorbic Acid 500 mg Chewable Tablet PO SCH ×2 (08:56→20:22)
[2020-11-05] MEDS: Calcium Carbonate 600 MG + Vit D TAB PO SCH (08:56)
[2020-11-05] MEDS: Zinc Sulfate 220 MG CAP PO SCH (08:56)
[2020-11-05] MEDS: Cholecalciferol (Vitamin D3) 5,000 UNITS CAPSULE PO SCH (08:56)
[2020-11-05] MEDS: Potassium Chloride 20 MEQ TAB PO SCH (08:56)
[2020-11-05] MEDS: Apixaban 2.5 MG TAB PO SCH ×2 (08:56→20:21)
[2020-11-05] MEDS: Cyclobenzaprine 10 MG TAB PO PRN (08:56)
[2020-11-05] MEDS: Fish Oil 1,000 MG CAP PO SCH (08:56)
[2020-11-05] MEDS: Aspirin 81 mg Enteric Coated Tablet PO SCH (08:56)
[2020-11-05] MEDS: Cyanocobalamin (Vitamin B-12) 1,000 MCG TAB PO SCH (08:56)
[2020-11-05] MEDS: Acetaminophen 500 MG TAB PO PRN ×2 (10:09→20:27)
[2020-11-05] MEDS: Atorvastatin Calcium 10 MG TAB PO SCH (20:22)
[2020-11-06] MEDS: traMADol HCl 50 MG TAB PO PRN ×3 (05:47→18:17)
[2020-11-06] MEDS: Allopurinol 100 MG TAB PO SCH (08:31)
[2020-11-06] MEDS: Aspirin 81 mg Enteric Coated Tablet PO SCH (08:31)
[2020-11-06] MEDS: Potassium Chloride 20 MEQ TAB PO SCH (08:31)
[2020-11-06] MEDS: Fish Oil 1,000 MG CAP PO SCH (08:31)
[2020-11-06] MEDS: Apixaban 2.5 MG TAB PO SCH ×2 (08:31→20:25)
[2020-11-06] MEDS: Cyanocobalamin (Vitamin B-12) 1,000 MCG TAB PO SCH (08:31)
[2020-11-06] MEDS: Zinc Sulfate 220 MG CAP PO SCH (08:31)
[2020-11-06] MEDS: Ferrous Gluconate 324 MG TAB PO SCH ×2 (08:31→17:08)
[2020-11-06] MEDS: Calcium Carbonate 600 MG + Vit D TAB PO SCH (08:31)
[2020-11-06] MEDS: Ascorbic Acid 500 mg Chewable Tablet PO SCH ×2 (08:31→20:25)
[2020-11-06] MEDS: Multivitamin W/ Minerals 1 TAB PO SCH (08:32)
[2020-11-06] MEDS: Cholecalciferol (Vitamin D3) 5,000 UNITS CAPSULE PO SCH (08:32)
[2020-11-06] MEDS: Triple Antibiotic Oint 1 GM Packet TOP SCH (08:32)
[2020-11-06] MEDS: Acetaminophen 500 MG TAB PO PRN (14:56)
[2020-11-06] MEDS: Atorvastatin Calcium 10 MG TAB PO SCH (20:21)
[2020-11-07] MEDS: traMADol HCl 50 MG TAB PO PRN ×4 (00:04→17:38)
[2020-11-07] MEDS: Acetaminophen 500 MG TAB PO PRN ×3 (04:24→20:07)
[2020-11-07] MEDS: Fish Oil 1,000 MG CAP PO SCH (08:18)
[2020-11-07] MEDS: Zinc Sulfate 220 MG CAP PO SCH (08:18)
[2020-11-07] MEDS: Aspirin 81 mg Enteric Coated Tablet PO SCH (08:18)
[2020-11-07] MEDS: Cyanocobalamin (Vitamin B-12) 1,000 MCG TAB PO SCH (08:18)
[2020-11-07] MEDS: Potassium Chloride 20 MEQ TAB PO SCH (08:18)
[2020-11-07] MEDS: Calcium Carbonate 600 MG + Vit D TAB PO SCH (08:18)
[2020-11-07] MEDS: Apixaban 2.5 MG TAB PO SCH ×2 (08:18→20:17)
[2020-11-07] MEDS: Ascorbic Acid 500 mg Chewable Tablet PO SCH ×2 (08:18→20:17)
[2020-11-07] MEDS: Cholecalciferol (Vitamin D3) 5,000 UNITS CAPSULE PO SCH (08:18)
[2020-11-07] MEDS: Ferrous Gluconate 324 MG TAB PO SCH ×2 (08:18→16:59)
[2020-11-07] MEDS: Multivitamin W/ Minerals 1 TAB PO SCH (08:18)
[2020-11-07] MEDS: Triple Antibiotic Oint 1 GM Packet TOP SCH (08:19)
[2020-11-07] MEDS: Atorvastatin Calcium 10 MG TAB PO SCH (20:17)
[2020-11-08] MEDS: traMADol HCl 50 MG TAB PO PRN ×4 (00:35→18:25)
[2020-11-08] MEDS: Acetaminophen 500 MG TAB PO PRN ×3 (03:59→20:15)
[2020-11-08] MEDS: Ferrous Gluconate 324 MG TAB PO SCH ×2 (09:36→17:30)
[2020-11-08] MEDS: Apixaban 2.5 MG TAB PO SCH ×2 (09:36→20:15)
[2020-11-08] MEDS: Calcium Carbonate 600 MG + Vit D TAB PO SCH (09:36)
[2020-11-08] MEDS: Triple Antibiotic Oint 1 GM Packet TOP SCH (09:36)
[2020-11-08] MEDS: Fish Oil 1,000 MG CAP PO SCH (09:36)
[2020-11-08] MEDS: Ascorbic Acid 500 mg Chewable Tablet PO SCH ×2 (09:36→20:15)
[2020-11-08] MEDS: Potassium Chloride 20 MEQ TAB PO SCH (09:36)
[2020-11-08] MEDS: Zinc Sulfate 220 MG CAP PO SCH (09:36)
[2020-11-08] MEDS: Multivitamin W/ Minerals 1 TAB PO SCH (09:37)
[2020-11-08] MEDS: Aspirin 81 mg Enteric Coated Tablet PO SCH (09:37)
[2020-11-08] MEDS: Cholecalciferol (Vitamin D3) 5,000 UNITS CAPSULE PO SCH (09:37)
[2020-11-08] MEDS: Cyanocobalamin (Vitamin B-12) 1,000 MCG TAB PO SCH (09:37)
[2020-11-08 10:18] VITALS: BMI 42.0
[2020-11-08] MEDS: Atorvastatin Calcium 10 MG TAB PO SCH (20:15)
[2020-11-09] MEDS: traMADol HCl 50 MG TAB PO PRN ×4 (00:01→18:50)
[2020-11-09] MEDS: Acetaminophen 500 MG TAB PO PRN ×4 (04:29→21:54)
[2020-11-09 05:55] LABS: #Basophils 0.1 thou/uL (0.0-0.2); #Eosinphils 0.1 thou/uL (0.0-0.7); #Lymphocytes 0.8 thou/uL (1.20-3.40); #Monocytes 0.7 thou/uL (0.11-0.59); #Neutrophils 8.8 thou/uL (1.40-6.50); %Basophils 0.7 % (0.0-1.0); %Lymphocytes 7.9 % (21.0-51.0); %Monocytes 6.4 % (0.0-10.0); Hemoglobin 8.4 g/dL (12.0-16.0); Large Platelets SLIGHT; MDiff Complete? YES; Macrocytosis SLIGHT = 6-15 cells (100X) (0-5/hpf); Mean Corpuscular HGB CONC 30.8 g/dL (32.0-36.0); Mean Corpuscular Hemoglobin 32.4 pg (27.0-31.0); Mean Corpuscular Volume 105.4 fL (78.0-98.0); Mean Platelet Volume 8.3 fL (7.4-10.4); Platelet Count 276 thou/uL (130-400); Platelet Morphology Comment Appears Adequate; Red Blood Cell (RBC) Count 2.59 mill/uL (4.20-5.40); White Blood Cell (WBC) Count 10.5 thou/uL (4.8-10.8)
[2020-11-09 06:00] LABS: Anion Gap 17 mmol/L (10-20); BUN (Urea Nitrogen) 31 mg/dL (9.8-20.1); Calc. Creatinine Clearance 75 mL/min (70-130); Carbon Dioxide 23 mmol/L (23-31); Chloride 105 mmol/L (98-107); Glucose 111 mg/dL (83-110); Potassium 4.8 mmol/L (3.5-5.1); Sodium 140 mmol/L (136-145)
[2020-11-09] MEDS: Ferrous Gluconate 324 MG TAB PO SCH ×2 (09:11→17:42)
[2020-11-09] MEDS: Fish Oil 1,000 MG CAP PO SCH (09:11)
[2020-11-09] MEDS: Zinc Sulfate 220 MG CAP PO SCH (09:11)
[2020-11-09] MEDS: Aspirin 81 mg Enteric Coated Tablet PO SCH (09:11)
[2020-11-09] MEDS: Multivitamin W/ Minerals 1 TAB PO SCH (09:11)
[2020-11-09] MEDS: Potassium Chloride 20 MEQ TAB PO SCH (09:12)
[2020-11-09] MEDS: Ascorbic Acid 500 mg Chewable Tablet PO SCH ×2 (09:12→21:48)
[2020-11-09] MEDS: Apixaban 2.5 MG TAB PO SCH ×2 (09:12→21:47)
[2020-11-09] MEDS: Calcium Carbonate 600 MG + Vit D TAB PO SCH (09:12)
[2020-11-09] MEDS: Triple Antibiotic Oint 1 GM Packet TOP SCH (09:12)
[2020-11-09] MEDS: Cholecalciferol (Vitamin D3) 5,000 UNITS CAPSULE PO SCH (09:12)
[2020-11-09] MEDS: Allopurinol 100 MG TAB PO SCH (09:12)
[2020-11-09] MEDS: Cyanocobalamin (Vitamin B-12) 1,000 MCG TAB PO SCH (09:12)
[2020-11-09] MEDS: Atorvastatin Calcium 10 MG TAB PO SCH (21:51)
[2020-11-10] MEDS: traMADol HCl 50 MG TAB PO PRN ×4 (00:23→17:55)
[2020-11-10] MEDS: Acetaminophen 500 MG TAB PO PRN ×3 (05:25→20:49)
[2020-11-10] MEDS: Triple Antibiotic Oint 1 GM Packet TOP SCH (08:51)
[2020-11-10] MEDS: Cyanocobalamin (Vitamin B-12) 1,000 MCG TAB PO SCH (08:51)
[2020-11-10] MEDS: Potassium Chloride 20 MEQ TAB PO SCH (08:51)
[2020-11-10] MEDS: Ascorbic Acid 500 mg Chewable Tablet PO SCH ×2 (08:51→20:48)
[2020-11-10] MEDS: Calcium Carbonate 600 MG + Vit D TAB PO SCH (08:51)
[2020-11-10] MEDS: Multivitamin W/ Minerals 1 TAB PO SCH (08:51)
[2020-11-10] MEDS: Zinc Sulfate 220 MG CAP PO SCH (08:51)
[2020-11-10] MEDS: Apixaban 2.5 MG TAB PO SCH (08:51)
[2020-11-10] MEDS: Ferrous Gluconate 324 MG TAB PO SCH ×2 (08:51→17:09)
[2020-11-10] MEDS: Cholecalciferol (Vitamin D3) 5,000 UNITS CAPSULE PO SCH (08:51)
[2020-11-10] MEDS: Aspirin 81 mg Enteric Coated Tablet PO SCH (08:51)
[2020-11-10] MEDS: Fish Oil 1,000 MG CAP PO SCH (08:51)
[2020-11-10] MEDS: Cyclobenzaprine 10 MG TAB PO PRN (09:09)
[2020-11-10] MEDS: Atorvastatin Calcium 10 MG TAB PO SCH (20:48)
[2020-11-10] MEDS: Apixaban 5 MG TAB PO SCH (20:48)
[2020-11-11] MEDS: traMADol HCl 50 MG TAB PO PRN ×4 (00:06→18:01)
[2020-11-11] MEDS: Ascorbic Acid 500 mg Chewable Tablet PO SCH ×2 (07:48→20:14)
[2020-11-11] MEDS: Apixaban 5 MG TAB PO SCH ×2 (07:48→20:14)
[2020-11-11] MEDS: Fish Oil 1,000 MG CAP PO SCH (07:48)
[2020-11-11] MEDS: Ferrous Gluconate 324 MG TAB PO SCH ×2 (07:48→17:01)
[2020-11-11] MEDS: Zinc Sulfate 220 MG CAP PO SCH (07:48)
[2020-11-11] MEDS: Cholecalciferol (Vitamin D3) 5,000 UNITS CAPSULE PO SCH (07:48)
[2020-11-11] MEDS: Calcium Carbonate 600 MG + Vit D TAB PO SCH (07:48)
[2020-11-11] MEDS: Cyanocobalamin (Vitamin B-12) 1,000 MCG TAB PO SCH (07:48)
[2020-11-11] MEDS: Allopurinol 100 MG TAB PO SCH (07:48)
[2020-11-11] MEDS: Multivitamin W/ Minerals 1 TAB PO SCH (07:49)
[2020-11-11] MEDS: Potassium Chloride 20 MEQ TAB PO SCH (07:49)
[2020-11-11] MEDS: Triple Antibiotic Oint 1 GM Packet TOP SCH (07:49)
[2020-11-11] MEDS: Aspirin 81 mg Enteric Coated Tablet PO SCH (07:49)
[2020-11-11] MEDS: Acetaminophen 500 MG TAB PO PRN ×2 (14:55→21:29)
[2020-11-11] MEDS: Atorvastatin Calcium 10 MG TAB PO SCH (20:14)
[2020-11-12] MEDS: traMADol HCl 50 MG TAB PO PRN ×4 (00:15→18:31)
[2020-11-12] MEDS: Calcium Carbonate 600 MG + Vit D TAB PO SCH (08:00)
[2020-11-12] MEDS: Zinc Sulfate 220 MG CAP PO SCH (08:00)
[2020-11-12] MEDS: Aspirin 81 mg Enteric Coated Tablet PO SCH (08:00)
[2020-11-12] MEDS: Cholecalciferol (Vitamin D3) 5,000 UNITS CAPSULE PO SCH (08:00)
[2020-11-12] MEDS: Multivitamin W/ Minerals 1 TAB PO SCH (08:00)
[2020-11-12] MEDS: Apixaban 5 MG TAB PO SCH ×2 (08:00→20:04)
[2020-11-12] MEDS: Ascorbic Acid 500 mg Chewable Tablet PO SCH ×2 (08:01→20:04)
[2020-11-12] MEDS: Fish Oil 1,000 MG CAP PO SCH (08:01)
[2020-11-12] MEDS: Potassium Chloride 20 MEQ TAB PO SCH (08:01)
[2020-11-12] MEDS: Triple Antibiotic Oint 1 GM Packet TOP SCH (08:01)
[2020-11-12] MEDS: Cyanocobalamin (Vitamin B-12) 1,000 MCG TAB PO SCH (08:01)
[2020-11-12] MEDS: Ferrous Gluconate 324 MG TAB PO SCH ×2 (08:01→17:08)
[2020-11-12] MEDS: Cyclobenzaprine 10 MG TAB PO PRN (08:13)
[2020-11-12] MEDS: Senokot S 8.6-50 MG TAB PO PRN (13:59)
[2020-11-12] MEDS: Acetaminophen 500 MG TAB PO PRN (17:08)
[2020-11-12] MEDS: Atorvastatin Calcium 10 MG TAB PO SCH (20:04)
[2020-11-13] MEDS: traMADol HCl 50 MG TAB PO PRN ×4 (00:12→18:14)
[2020-11-13] MEDS: Acetaminophen 500 MG TAB PO PRN ×3 (05:23→15:27)
[2020-11-13] MEDS: Ferrous Gluconate 324 MG TAB PO SCH ×2 (08:09→16:41)
[2020-11-13] MEDS: Apixaban 5 MG TAB PO SCH ×2 (08:10→20:03)
[2020-11-13] MEDS: Potassium Chloride 20 MEQ TAB PO SCH (08:10)
[2020-11-13] MEDS: Ascorbic Acid 500 mg Chewable Tablet PO SCH ×2 (08:10→20:03)
[2020-11-13] MEDS: Multivitamin W/ Minerals 1 TAB PO SCH (08:10)
[2020-11-13] MEDS: Fish Oil 1,000 MG CAP PO SCH (08:12)
[2020-11-13] MEDS: Zinc Sulfate 220 MG CAP PO SCH (08:12)
[2020-11-13] MEDS: Aspirin 81 mg Enteric Coated Tablet PO SCH (08:12)
[2020-11-13] MEDS: Calcium Carbonate 600 MG + Vit D TAB PO SCH (08:13)
[2020-11-13] MEDS: Cyanocobalamin (Vitamin B-12) 1,000 MCG TAB PO SCH (08:13)
[2020-11-13] MEDS: Cholecalciferol (Vitamin D3) 5,000 UNITS CAPSULE PO SCH (08:13)
[2020-11-13] MEDS: Allopurinol 100 MG TAB PO SCH (08:27)
[2020-11-13] MEDS: Senokot S 8.6-50 MG TAB PO PRN (08:33)
[2020-11-13] MEDS: Triple Antibiotic Oint 1 GM Packet TOP SCH (09:29)
[2020-11-13] MEDS ORDERED: Polyethylene Glycol 3350 17 GM Packet PO PRN (09:35)
[2020-11-13] MEDS ORDERED: Senokot 8.6 MG TAB PO PRN (09:36)
[2020-11-13] MEDS ORDERED: SENOKOT PR PRN (09:37)
[2020-11-13] MEDS: Cyclobenzaprine 10 MG TAB PO PRN (10:10)
[2020-11-13] MEDS: Atorvastatin Calcium 10 MG TAB PO SCH (20:03)
[2020-11-14] MEDS: traMADol HCl 50 MG TAB PO PRN ×4 (05:51→20:10)
[2020-11-14] MEDS: Aspirin 81 mg Enteric Coated Tablet PO SCH (08:45)
[2020-11-14] MEDS: Ferrous Gluconate 324 MG TAB PO SCH ×2 (08:45→17:11)
[2020-11-14] MEDS: Zinc Sulfate 220 MG CAP PO SCH (08:45)
[2020-11-14] MEDS: Multivitamin W/ Minerals 1 TAB PO SCH (08:45)
[2020-11-14] MEDS: Calcium Carbonate 600 MG + Vit D TAB PO SCH (08:45)
[2020-11-14] MEDS: Potassium Chloride 20 MEQ TAB PO SCH (08:46)
[2020-11-14] MEDS: Cyanocobalamin (Vitamin B-12) 1,000 MCG TAB PO SCH (08:46)
[2020-11-14] MEDS: Cholecalciferol (Vitamin D3) 5,000 UNITS CAPSULE PO SCH (08:46)
[2020-11-14] MEDS: Ascorbic Acid 500 mg Chewable Tablet PO SCH ×2 (08:46→20:11)
[2020-11-14] MEDS: Apixaban 5 MG TAB PO SCH ×2 (08:46→20:11)
[2020-11-14] MEDS: Fish Oil 1,000 MG CAP PO SCH (08:46)
[2020-11-14] MEDS: Triple Antibiotic Oint 1 GM Packet TOP SCH (08:46)
[2020-11-14] MEDS: Acetaminophen 500 MG TAB PO PRN ×2 (09:50→18:12)
[2020-11-14] MEDS: Senokot S 8.6-50 MG TAB PO PRN (09:59)
[2020-11-14] MEDS: Cyclobenzaprine 10 MG TAB PO PRN (12:16)
[2020-11-14] MEDS: Atorvastatin Calcium 10 MG TAB PO SCH (20:11)
[2020-11-15] MEDS: traMADol HCl 50 MG TAB PO PRN ×4 (02:08→23:16)
[2020-11-15] MEDS: Acetaminophen 500 MG TAB PO PRN ×2 (05:42→17:02)
[2020-11-15] MEDS: Ferrous Gluconate 324 MG TAB PO SCH ×2 (08:11→17:02)
[2020-11-15] MEDS: Cyanocobalamin (Vitamin B-12) 1,000 MCG TAB PO SCH (08:11)
[2020-11-15] MEDS: Ascorbic Acid 500 mg Chewable Tablet PO SCH ×2 (08:11→21:05)
[2020-11-15] MEDS: Cholecalciferol (Vitamin D3) 5,000 UNITS CAPSULE PO SCH (08:11)
[2020-11-15] MEDS: Zinc Sulfate 220 MG CAP PO SCH (08:11)
[2020-11-15] MEDS: Multivitamin W/ Minerals 1 TAB PO SCH (08:11)
[2020-11-15] MEDS: Calcium Carbonate 600 MG + Vit D TAB PO SCH (08:12)
[2020-11-15] MEDS: Aspirin 81 mg Enteric Coated Tablet PO SCH (08:12)
[2020-11-15] MEDS: Triple Antibiotic Oint 1 GM Packet TOP SCH (08:12)
[2020-11-15] MEDS: Potassium Chloride 20 MEQ TAB PO SCH (08:12)
[2020-11-15] MEDS: Apixaban 5 MG TAB PO SCH ×2 (08:12→21:05)
[2020-11-15] MEDS: Fish Oil 1,000 MG CAP PO SCH (08:12)
[2020-11-15] MEDS: Senokot S 8.6-50 MG TAB PO PRN (14:31)
[2020-11-15] MEDS ORDERED: Bisacodyl 10 MG SUPP PR PRN (14:53)
[2020-11-15] MEDS: Atorvastatin Calcium 10 MG TAB PO SCH (21:05)
[2020-11-16] MEDS: Acetaminophen 500 MG TAB PO PRN ×3 (04:29→19:48)
[2020-11-16] MEDS: traMADol HCl 50 MG TAB PO PRN ×2 (06:11→15:29)
[2020-11-16 08:04] LABS: Bilirubin Negative (Negative); Blood, Urine Negative (Negative); Clarity Clear (Clear); Glucose, Urine (Dipstick) Negative (Negative); Ketone, Urine 15 mg/dL (Negative); Leukocyte Negative (Negative); Nitrite Negative (Negative); Protein, Urine (Dipstick) Negative (Neg-Trace); Specific Gravity, Urine 1.025 (1.005-1.030); Urobilinogen 0.2 mg/dL (Less than 2)
[2020-11-16 08:08] LABS: Urine Culture Reflex No No
[2020-11-16] MEDS: Potassium Chloride 20 MEQ TAB PO SCH (08:49)
[2020-11-16] MEDS: Zinc Sulfate 220 MG CAP PO SCH (08:49)
[2020-11-16] MEDS: Cyanocobalamin (Vitamin B-12) 1,000 MCG TAB PO SCH (08:49)
[2020-11-16] MEDS: Multivitamin W/ Minerals 1 TAB PO SCH (08:49)
[2020-11-16] MEDS: Aspirin 81 mg Enteric Coated Tablet PO SCH (08:49)
[2020-11-16] MEDS: Polyethylene Glycol 3350 17 GM Packet PO SCH (08:49)
[2020-11-16] MEDS: Cholecalciferol (Vitamin D3) 5,000 UNITS CAPSULE PO SCH (08:49)
[2020-11-16] MEDS: Calcium Carbonate 600 MG + Vit D TAB PO SCH (08:49)
[2020-11-16] MEDS: Ferrous Gluconate 324 MG TAB PO SCH ×2 (08:49→17:32)
[2020-11-16] MEDS: Ascorbic Acid 500 mg Chewable Tablet PO SCH ×2 (08:49→21:10)
[2020-11-16] MEDS: Fish Oil 1,000 MG CAP PO SCH (08:49)
[2020-11-16] MEDS: Apixaban 5 MG TAB PO SCH ×2 (08:50→21:11)
[2020-11-16] MEDS: Allopurinol 100 MG TAB PO SCH (08:53)
[2020-11-16] MEDS: Triple Antibiotic Oint 1 GM Packet TOP SCH (08:56)
[2020-11-16] MEDS: Senokot S 8.6-50 MG TAB PO PRN (21:11)
[2020-11-16] MEDS: Atorvastatin Calcium 10 MG TAB PO SCH (21:11)
[2020-11-16] MEDS ORDERED: Acetaminophen 325 MG TAB PO PRN (23:27)
[2020-11-17] MEDS: HYDROcodone/Acetaminophen 5/325 mg Tablet PO SCH ×3 (00:01→12:01)
[2020-11-17] MEDS: Zinc Sulfate 220 MG CAP PO SCH (08:41)
[2020-11-17] MEDS: Aspirin 81 mg Enteric Coated Tablet PO SCH (08:41)
[2020-11-17] MEDS: Potassium Chloride 20 MEQ TAB PO SCH (08:41)
[2020-11-17] MEDS: Calcium Carbonate 600 MG + Vit D TAB PO SCH (08:41)
[2020-11-17] MEDS: Polyethylene Glycol 3350 17 GM Packet PO SCH (08:41)
[2020-11-17] MEDS: Cyanocobalamin (Vitamin B-12) 1,000 MCG TAB PO SCH (08:41)
[2020-11-17] MEDS: Multivitamin W/ Minerals 1 TAB PO SCH (08:41)
[2020-11-17] MEDS: Apixaban 5 MG TAB PO SCH ×2 (08:41→21:15)
[2020-11-17] MEDS: Ferrous Gluconate 324 MG TAB PO SCH ×2 (08:41→17:10)
[2020-11-17] MEDS: Fish Oil 1,000 MG CAP PO SCH (08:41)
[2020-11-17] MEDS: Ascorbic Acid 500 mg Chewable Tablet PO SCH ×2 (08:41→21:15)
[2020-11-17] MEDS: Cholecalciferol (Vitamin D3) 5,000 UNITS CAPSULE PO SCH (08:41)
[2020-11-17] MEDS: Triple Antibiotic Oint 1 GM Packet TOP SCH (08:42)
[2020-11-17] MEDS: Atorvastatin Calcium 10 MG TAB PO SCH (21:15)
[2020-11-18] MEDS: traMADol HCl 50 MG TAB PO PRN ×3 (05:23→20:37)
[2020-11-18] MEDS: Apixaban 5 MG TAB PO SCH (08:22)
[2020-11-18] MEDS: Potassium Chloride 20 MEQ TAB PO SCH (08:22)
[2020-11-18] MEDS: Aspirin 81 mg Enteric Coated Tablet PO SCH (08:22)
[2020-11-18] MEDS: Allopurinol 100 MG TAB PO SCH (08:22)
[2020-11-18] MEDS: Multivitamin W/ Minerals 1 TAB PO SCH (08:23)
[2020-11-18] MEDS: Calcium Carbonate 600 MG + Vit D TAB PO SCH (08:23)
[2020-11-18] MEDS: Zinc Sulfate 220 MG CAP PO SCH (08:24)
[2020-11-18] MEDS: Ascorbic Acid 500 mg Chewable Tablet PO SCH ×2 (08:24→20:03)
[2020-11-18] MEDS: Cholecalciferol (Vitamin D3) 5,000 UNITS CAPSULE PO SCH (08:25)
[2020-11-18] MEDS: Cyanocobalamin (Vitamin B-12) 1,000 MCG TAB PO SCH (08:25)
[2020-11-18] MEDS: Fish Oil 1,000 MG CAP PO SCH (08:25)
[2020-11-18] MEDS: Ferrous Gluconate 324 MG TAB PO SCH ×2 (08:25→18:09)
[2020-11-18] MEDS: Polyethylene Glycol 3350 17 GM Packet PO SCH (08:26)
[2020-11-18] MEDS: Triple Antibiotic Oint 1 GM Packet TOP SCH (08:26)
[2020-11-18] MEDS: Acetaminophen 500 MG TAB PO PRN (18:10)
[2020-11-18] MEDS: Atorvastatin Calcium 10 MG TAB PO SCH (20:03)
[2020-11-19] MEDS: Acetaminophen 500 MG TAB PO PRN ×3 (00:53→14:39)
[2020-11-19] MEDS: Ascorbic Acid 500 mg Chewable Tablet PO SCH ×2 (08:14→20:51)
[2020-11-19] MEDS: Ferrous Gluconate 324 MG TAB PO SCH ×2 (08:14→18:03)
[2020-11-19] MEDS: Fish Oil 1,000 MG CAP PO SCH (08:14)
[2020-11-19] MEDS: Multivitamin W/ Minerals 1 TAB PO SCH (08:14)
[2020-11-19] MEDS: Zinc Sulfate 220 MG CAP PO SCH (08:14)
[2020-11-19] MEDS: Cyanocobalamin (Vitamin B-12) 1,000 MCG TAB PO SCH (08:14)
[2020-11-19] MEDS: Potassium Chloride 20 MEQ TAB PO SCH (08:14)
[2020-11-19] MEDS: Polyethylene Glycol 3350 17 GM Packet PO SCH (08:14)
[2020-11-19] MEDS: Calcium Carbonate 600 MG + Vit D TAB PO SCH (08:14)
[2020-11-19] MEDS: Aspirin 81 mg Enteric Coated Tablet PO SCH (08:14)
[2020-11-19] MEDS: Cholecalciferol (Vitamin D3) 5,000 UNITS CAPSULE PO SCH (08:15)
[2020-11-19] MEDS: Triple Antibiotic Oint 1 GM Packet TOP SCH (08:15)
[2020-11-19] MEDS ORDERED: Apixaban 5 MG TAB PO SCH (09:00)
[2020-11-19 12:57] LABS: #Basophils 0.1 thou/uL (0.0-0.2); #Eosinphils 0.2 thou/uL (0.0-0.7); #Lymphocytes 0.7 thou/uL (1.20-3.40); #Monocytes 0.4 thou/uL (0.11-0.59); #Neutrophils 4.4 thou/uL (1.40-6.50); %Basophils 2.2 % (0.0-1.0); %Lymphocytes 11.5 % (21.0-51.0); %Neutrophils 75.2 % (42.0-75.0); Hemoglobin 10.3 g/dL (12.0-16.0); Mean Corpuscular HGB CONC 28.7 g/dL (32.0-36.0); Mean Corpuscular Hemoglobin 31.6 pg (27.0-31.0); Mean Corpuscular Volume 110.1 fL (78.0-98.0); Mean Platelet Volume 8.9 fL (7.4-10.4); Platelet Count 291 thou/uL (130-400); RBC Distribution Width 19.1 % (11.5-14.5); Red Blood Cell (RBC) Count 3.27 mill/uL (4.20-5.40); White Blood Cell (WBC) Count 5.9 thou/uL (4.8-10.8)
[2020-11-19 13:03] LABS: Anion Gap 12 mmol/L (10-20); BUN (Urea Nitrogen) 24 mg/dL (9.8-20.1); Calc. Creatinine Clearance 61 mL/min (70-130); Calcium 10.2 mg/dL (7.8-10.44); Carbon Dioxide 24 mmol/L (23-31); Chloride 103 mmol/L (98-107); Glucose 137 mg/dL (83-110); Potassium 5.2 mmol/L (3.5-5.1); Sodium 134 mmol/L (136-145)
[2020-11-19 13:10] LABS: Anisocytosis SLIGHT = 6-15 cells (100X) (0-5/hpf)
[2020-11-19 13:11] LABS: Macrocytosis SLIGHT = 6-15 cells (100X) (0-5/hpf); Platelet Morphology Comment Appears Adequate
[2020-11-19] MEDS ORDERED: Melatonin 3 MG TAB PO PRN (20:50)
[2020-11-19] MEDS: Atorvastatin Calcium 10 MG TAB PO SCH (20:51)
[2020-11-19] MEDS: Apixaban 2.5 MG TAB PO SCH (20:52)
[2020-11-19] MEDS: traMADol HCl 50 MG TAB PO PRN (20:52)
[2020-11-20] MEDS: Acetaminophen 500 MG TAB PO PRN ×2 (00:19→12:10)
[2020-11-20] MEDS: Ferrous Gluconate 324 MG TAB PO SCH (08:15)
[2020-11-20] MEDS: Cyanocobalamin (Vitamin B-12) 1,000 MCG TAB PO SCH (08:16)
[2020-11-20] MEDS: Ascorbic Acid 500 mg Chewable Tablet PO SCH (08:16)
[2020-11-20] MEDS: Calcium Carbonate 600 MG + Vit D TAB PO SCH (08:16)
[2020-11-20] MEDS: Aspirin 81 mg Enteric Coated Tablet PO SCH (08:16)
[2020-11-20] MEDS: Triple Antibiotic Oint 1 GM Packet TOP SCH (08:16)
[2020-11-20] MEDS: Zinc Sulfate 220 MG CAP PO SCH (08:16)
[2020-11-20] MEDS: Apixaban 2.5 MG TAB PO SCH (08:16)
[2020-11-20] MEDS: Cholecalciferol (Vitamin D3) 5,000 UNITS CAPSULE PO SCH (08:16)
[2020-11-20] MEDS: Multivitamin W/ Minerals 1 TAB PO SCH (08:16)
[2020-11-20] MEDS: traMADol HCl 50 MG TAB PO PRN (08:17)
[2020-11-20] MEDS: Fish Oil 1,000 MG CAP PO SCH (08:17)
[2020-11-20] MEDS: Polyethylene Glycol 3350 17 GM Packet PO SCH (08:17)
[2020-11-20 08:41] VITALS: TEMP 97.6
[2020-11-20] MEDS: Allopurinol 100 MG TAB PO SCH (10:10)
[2020-11-20 12:09] VITALS: BP 152/99
== END 2020-11-20 12:30 | disposition home or self-care (01) | DRG 560 ==
LOC: MADMS 13:40
PROVIDERS: ADMIT Family Medicine; ATTEND Family Medicine
DX: S72.141D Displaced intertrochanteric fracture of right femur, subsequent encounter for closed fracture with routine healing (principal); D62 Acute posthemorrhagic anemia; N17.9 Acute kidney failure, unspecified; E87.1 Hypo-osmolality and hyponatremia; Z68.41 Body mass index [BMI] 40.0-44.9, adult; T81.49XA Infection following a procedure, other surgical site, initial encounter; I25.10 Atherosclerotic heart disease of native coronary artery without angina pectoris; I48.91 Unspecified atrial fibrillation; N18.9 Chronic kidney disease, unspecified; I12.9 Hypertensive chronic kidney disease with stage 1 through stage 4 chronic kidney disease, or unspecified chronic kidney disease; M10.9 Gout, unspecified; R26.81 Unsteadiness on feet; E78.5 Hyperlipidemia, unspecified; E66.01 Morbid (severe) obesity due to excess calories; K59.00 Constipation, unspecified; Y83.8 Other surgical procedures as the cause of abnormal reaction of the patient, or of later complication, without mention of misadventure at the time of the procedure; Z95.0 Presence of cardiac pacemaker; Z88.0 Allergy status to penicillin; Z88.1 Allergy status to other antibiotic agents; Z79.82 Long term (current) use of aspirin; Z79.899 Other long term (current) drug therapy; Z79.01 Long term (current) use of anticoagulants; Z90.710 Acquired absence of both cervix and uterus; Z98.890 Other specified postprocedural states
CPT/HCPCS: 36415; 80048; 81001; 85025; Q0162